=== PATIENT | male | born 1980 | race Caucasian/White ===

== ENCOUNTER 2022-07-17 18:09 | Emergency (ER) | payer MEDICARE, MEDICAID, SELFPAY ==
--- NOTE | ~2022-07-17 | CT_ITS ---
EXAMINATION: CT HEAD WITHOUT CONTRAST CLINICAL INFORMATION: Altered mental status COMPARISON: 09/08/2013 TECHNIQUE: Contiguous axial imaging was performed from the skull base to vertex without intravenous administration of contrast. This CT examination was performed using dose optimization techniques as appropriate, variously including the following: *Automated exposure control *Adjustment of mA and/or kV according to patient size (this includes techniques or standardized protocols for targeted exams where dose is matched to indication/reason for exam; i.e. extremities or head) *Use of iterative reconstruction technique DLP: 685 mGy-cm FINDINGS: Stable encephalomalacia and gliosis within the anterior left frontal lobe and anterior left temporal lobe, appearance and location typical for sequela of previous trauma. No additional areas of abnormal attenuation within the brain parenchyma. No acute intracranial hemorrhage or extra-axial collection. Ventricular system normal in size and configuration. No mass, mass effect or herniation pattern. Calvarium intact. Small mucous retention cysts in the right maxillary sinus. Remaining paranasal sinuses, and mastoid air cells are clear. CT/CT head/brain wo IV con IMPRESSION: * No acute intracranial pathology. * Stable remote posttraumatic encephalomalacia/gliosis within the anterior left frontal and temporal lobes.
[2022-07-17 18:21] VITALS: BP 138/83; PULSE 103; RESP 20; O2SAT 97; BMI 26.8
--- NOTE | 2022-07-17 18:30 | ED.ALCOHOL ---
HPI - Alcohol General Chief Complaint: ETOH/Substance Use Stated Complaint: etoh Source: patient and EMS Mode of arrival: EMS Limitations: other (Intoxicated) History of Present Illness HPI narrative: 42-year-old male presents via EMS for alcohol intoxication. It is reported that he eloped from [place] this morning, and then drank several pt of vodka. Patient has unintelligible speech at this time. MD complaint: alcohol intoxication and alcohol dependence Last drink: Just prior to admission Chronic alcohol use: Yes Previous visits for alcohol intoxication: Yes (First presentation to this facility, has had multiple presentations at [place]) Recent trauma: Yes Associated symptoms: denies other symptoms Treatments prior to arrival: none Related Data Allergies Allergy/AdvReac Type Severity Reaction Status Date / Time prednisone [PREDNISONE] Allergy Unknown MANIC Unverified 07/05/20 16:54 Review of Systems Review of Systems: Yes Unobtainable due to mental status (Intoxicated) [facility] Past Medical History Attestation statement: The following information was validated with the patient. Source: old records reviewed Physical Exam ED Vital Signs: Vital Signs - 24 hr 07/17/22 18:21 07/17/22 20:07 07/17/22 23:46 Temperature 98.3 F 98.0 F Pulse Rate 103 H 105 H 79 Respiratory Rate 20 19 Blood Pressure 138/83 116/70 Pulse Oximetry 97 94 94 Oxygen Delivery Method Room Air Room Air Room Air BMI result Body Mass Index 26.8 Appearance: Alert. Intoxicated. Eyes: Pupils equal, round and reactive to light. ENT: Pharynx normal. Neck: Normal inspection. Neck supple. CVS: Normal heart rate and rhythm. Pulses normal. Respiratory: No respiratory distress. Breath sounds normal. Abdomen: Soft and nontender. Skin: Skin warm and dry. Normal skin color. Normal skin turgor. Extremities: No lower extremity edema. Moves all extremities against resistance. Neuro: No motor deficit. No sensory deficit. Cranial nerves 2-12 intact. Course Course Course Narrative: 42-year-old male presents for alcohol intoxication. Has unintelligible speech at this time, will order labs. Patient presents from an elopement [place] for ETOH intoxication. It is reported by EMS that he drink large amounts of vodka before presenting to this facility. 19:00 ETOH 346. Plan of care is to metabolized freedom. 20:00 patient is difficult to arouse however he does have even unlabored respirations, O2 sat 99% on room air, with a heart rate in the 70s. 23:00 patient continues to sleep, reposition self as needed, arouses with sternal rub, O2 sat 98% on room air, even unlabored respirations, heart rate in the 70s. 00:00 patient continues to sleep and requires sternal rub for arousal. Will order CT scan of the head to rule out subdural. 00:30 CT scan negative for acute findings. Stable remote posttraumatic encephalomalacia gliosis within the anterior frontal lobe and temporal lobes. No acute findings. Plan of care is to metabolize to freedom. MDM - Alcohol Differential Diagnosis Differential diagnosis: Likely alcohol dependence, alcohol withdrawal delirium and alcohol intoxication Medical Records Attestation: I reviewed the patient's medical records. Lab Data Attestation: I reviewed the patient's lab results. Result diagrams: 07/17/22 18:53 07/17/22 18:53 Labs: Lab Results 07/17/22 07/17/22 Range/Units 18:53 18:53 WBC 8.6 (4.8-10.8) X10*3/uL RBC 4.26 L (4.60-5.80) X10*6/uL Hgb 13.1 L (14.0-18.0) g/dl Hct 37.7 L (42.0-52.0) % MCV 88.5 (80.0-98.0) fL MCH 30.8 (27.0-33.0) pg MCHC 34.7 (31.0-36.0) g/dl RDW 12.8 (11.0-16.0) % Plt Count 176 (160-400) X10*3/uL MPV 8.9 L (9.4-12.4) fL Immature Gran % (Auto) 0.2 (0.0-0.4) % Neut % (Auto) 68.6 (45-73) % Lymph % (Auto) 22.1 (20-40) % Ness % (Auto) 6.3 (2-11) % Eos % (Auto) 2.3 (0-4) % Baso % (Auto) 0.5 (0-2) % Lymph # (Auto) 1.9 (1.2-4.9) X10*3/uL Ness # (Auto) 0.5 (0.1-1.2) X10*3/uL Eos # (Auto) 0.2 (0.0-0.4) X10*3/uL Baso # (Auto) 0.0 (0.0-0.2) X10*3/uL Abs Immat Gran (auto) 0.02 (0.00-0.03) X10*3/uL Absolute Neuts (auto) 5.9 (2.0-8.3) x10*3/uL Absolute Nucleated RBC 0.000 (0.0-0.012) X10*3/uL Nucleated RBC % (auto) 0.0 (0.0-0.2) /100WBC Sodium 141 (135-145) mmol/L Potassium 3.5 (3.3-5.1) mmol/L Chloride 107 (96-108) mmol/L Carbon Dioxide 22 (22-29) mmol/L Anion Gap 16 (12-20) BUN 12 (9-16) mg/dL Creatinine 0.88 (0.5-1.4) mg/dL Estim Creat Clear Calc 91.5 Estimated GFR > 60 Random Glucose 117 H (60-115) mg/dL Calcium 8.5 (8.4-10.2) mg/dL Total Bilirubin 0.3 (0.0-1.0) mg/dL AST 58 H (5-37) U/L ALT 42 H (0-40) U/L Alkaline Phosphatase 52 (39-117) U/L Total Protein 6.4 L (6.5-8.0) g/dL Albumin 4.0 (3.5-5.0) g/dL Ethyl Alcohol 346 H* mg/dL Imaging Data CT scan - head: Attestation: I personally reviewed and interpreted this imaging study as follows: Radiologist's impression: FINDINGS: Stable encephalomalacia and gliosis within the anterior left frontal lobe and anterior left temporal lobe, appearance and location typical for sequela of previous trauma. No additional areas of abnormal attenuation within the brain parenchyma. No acute intracranial hemorrhage or extra-axial collection. Ventricular system normal in size and configuration. No mass, mass effect or herniation pattern. Calvarium intact. Small mucous retention cysts in the right maxillary sinus. Remaining paranasal sinuses, and mastoid air cells are clear. ? CT/CT head/brain wo IV con IMPRESSION: *? No acute intracranial pathology. *? Stable remote posttraumatic encephalomalacia/gliosis within the anterior left frontal and temporal lobes. Discharge Plan Discharge Clinical Impression: Alcoholic intoxication Patient Disposition: Still a Patient Instructions: Abuse of Alcohol (ED) Additional Instructions: Consider detox. Thank you for choosing this emergency department for evaluation. Please follow-up with primary care physician as needed. Return to the emergency department for any new, concerning, or worsening symptoms.
[2022-07-17 18:58] LABS: MANUAL DIFF FLAG NO
[2022-07-17 18:59] LABS: Basophils Percent Auto 0.5 % (0-2); Eosinophils Absolute Auto 0.2 X10*3/uL (0.0-0.4); Eosinophils Percent Auto 2.3 % (0-4); Hematocrit 37.7 % (42.0-52.0); Hemoglobin 13.1 g/dl (14.0-18.0); Imm Gran Abs Auto 0.02 X10*3/uL (0.00-0.03); Imm Gran Pct Auto 0.2 % (0.0-0.4); Lymphocytes Absolute Auto 1.9 X10*3/uL (1.2-4.9); Lymphocytes Percent Auto 22.1 % (20-40); Mean Corpuscular HGB Conc 34.7 g/dl (31.0-36.0); Mean Corpuscular Hemoglobin 30.8 pg (27.0-33.0); Mean Corpuscular Volume 88.5 fL (80.0-98.0); Mean Platelet Volume 8.9 fL (9.4-12.4); Monocytes Absolute Auto 0.5 X10*3/uL (0.1-1.2); Monocytes Percent Auto 6.3 % (2-11); Neutrophils Absolute Auto 5.9 x10*3/uL (2.0-8.3); Neutrophils Percent Auto 68.6 % (45-73); Platelet Count 176 X10*3/uL (160-400); Red Blood Count 4.26 X10*6/uL (4.60-5.80); Red Cell Distribution Width 12.8 % (11.0-16.0); White Blood Count 8.6 X10*3/uL (4.8-10.8)
[2022-07-17 19:15] LABS: Alanine Aminotransferase 42 U/L (0-40); Alkaline Phosphatase 52 U/L (39-117); Anion Gap 16 (12-20); Aspartate Amino Transferase 58 U/L (5-37); Bilirubin Total 0.3 mg/dL (0.0-1.0); Blood Urea Nitrogen 12 mg/dL (9-16); Calcium 8.5 mg/dL (8.4-10.2); Carbon Dioxide 22 mmol/L (22-29); Chloride 107 mmol/L (96-108); Creatinine Clr Calc Pharmacy 91.5; Estimated Glomerular Filt Rate > 60; Ethanol 346 mg/dL; Glucose Random 117 mg/dL (60-115); Potassium 3.5 mmol/L (3.3-5.1); Sodium 141 mmol/L (135-145); Total Protein 6.4 g/dL (6.5-8.0)
[2022-07-17 20:07] VITALS: BP 116/70; PULSE 105; TEMP 36.8; O2SAT 94
--- NOTE | 2022-07-17 20:57 | MHC.RECOVSUP ---
? Reason for consult:ETOH o? Current location:ED09? o? Identified substance use concern:? -? Support ? Intervention: N/A ? Plan: o? Follow up tomorrow? ? Additional information:RC wasn't able to speak with pt, he is sedated or too intoxicated? pt is in a deep sleep.
[2022-07-17 23:46] VITALS: PULSE 79; RESP 19; TEMP 36.7; O2SAT 94
[2022-07-18 02:00] VITALS: BP 139/69; PULSE 81; RESP 18; TEMP 36.7
--- NOTE | 2022-07-18 03:29 | PC.NURSE ---
PO from nearby room made RN aware that the pt may have a bottle of alcohol present on his bed. Upon arrival the bedside, a smirnoff vodka bottle was found at the foot of the bed. RN called security and provided them with the bottle, security completed a search of the pt's belongings for additional contraband but none was found.
[2022-07-18 03:41] VITALS: BP 142/73; PULSE 81; RESP 19; TEMP 36.1; O2SAT 96
[2022-07-18 09:50] VITALS: BP 105/62; PULSE 74; RESP 14; O2SAT 95
--- NOTE | 2022-07-18 09:51 | PC.NURSE ---
Pt asleep at this time, VSS.
[2022-07-18 11:14] LABS: Amphetamine Screen Urine Not Detected (Not Detect); Barbiturates, Urine POSITIVE (Not Detect); Benzodiazepines Screen Urine POSITIVE (Not Detect); Cannabinoid Screen Urine POSITIVE (Not Detect); Cocaine Screen Urine Not Detected (Not Detect); Fentanyl, urine Not Detected (Not Detect); Opiate Screen Urine Not Detected (Not Detect); Phencyclidine Screen Urine Not Detected (Not Detect)
[2022-07-18 11:23] LABS: COVID-19 Test Negative (Negative); IDNOW Serial# 9DB6401D
[2022-07-18] MEDS: LORazepam 1 MG TABLET 2 MG PO ×2 (11:40→18:02)
--- NOTE | 2022-07-18 12:47 | MHC.CARE ---
CARE Team attempted to meet with Pt. Pt was to sedate at this time. Plan for care team to follow up with Pt in a couple of hours.
--- OUTSIDE RECORDS SUMMARY | 2022-07-18 15:36 | XMS_ITS | Continuity of Care Document ---
:1980 Author Organization [facility] Address [address] [place] [address]- Care Team Providers Name Role Phone Not on Staff, PCP Primary Care Physician Unavailable Encounter [facility] Date(s): 05/31/21 - 05/31/[address] [address]- Discharge Disposition: A-D/C Shelter, Skilled Nursing, or Longterm Fac Attending Physician: Jody Sosa DO Admitting Physician: Jody Sosa DO Referring Physician: Not on Staff, Referring MD Allergies, Adverse Reactions, Alerts Substance Reaction Severity Status predniSONE Promethazine allergy Active Phenergan Active promethazine Active Protonix Active Immunizations Given and Recorded Vaccine Date Status Refusal Reason tetanus/diphtheria/pertussis, acel(Tdap) 10/18/13 Given Tet/Diphth/Acel, Pertussis (oldterm)1 05/30/08 Given Not Given Vaccine Date Status Refusal Reason pneumococcal 23-valent vaccine 12/29/13 Not Given P atient Refuses pneumococcal 23-valent vaccine 10/19/13 Not Given P atient Refuses 1Admin Note: SANOFI PASTEUR Medications gabapentin 600 mg oral tablet 1 tablet = 600 mg, By Mouth, 4 times a day, # 120 tablet, 0 Refills, Maintenance, 09/27/20 11:13:00 EST, Tablet, Partial fill upon patient request if the prescription is for a schedule II opioid drug. Start Date: 09/27/20 Status: OrderedTEGretol 200 mg oral tablet 200 mg, 1, tablet, By Mouth, Daily at bedtime, # 30 tablet, Refills 0, Tot. Refills 0, Maintenance, 09/27/20 11:13:00 EST, Print Requisition, Partial fill upon patient request if the prescription is for a schedule II opioid drug. Start Date: 09/27/20 Status: Ordered Problem List Condition Effective Dates Status Health Status Informant Alcohol abuse(Confirmed) Active allergy(Confirmed) Active Depression(Confirmed) Active Hepatitis C(Confirmed) 09/2005 Active Injury of shoulder, left(Confirmed) Active PTSD - Post-traumatic stress Active disorder(Confirmed) Seizure(Confirmed) Active Substance abuse(Confirmed) Active Traumatic brain injury(Confirmed) Active Vital Signs Most recent to oldest 1 2 3 [Reference Range]: Height 163 cm 163 cm (05/31/21 6:30 AM) (05/31/21 6:15 AM) Weight 61.6 kg 61.6 kg (05/31/21 6:30 AM) (05/31/21 6:15 AM) Oxygen Saturation [94-100 %] 96 % 97 % 95 % (05/31/21 6:30 AM) (05/31/21 6:15 AM) (05/31/21 5:3 7 AM) Pulse Rate [55-90 bpm] 100 bpm 98 bpm 101 bpm *H* *H* *H* (05/31/21 6:30 AM) (05/31/21 6:15 AM) (05/31/21 5:3 7 AM) Body Mass Index [18.5-24.99] 23.18 (05/31/21 6:30 AM) Blood Pressure [90-138/55-84 mm 106/62 mm Hg 105/74 mm Hg 111/69 mm Hg Hg] (05/31/21 6:30 AM) (05/31/21 6:15 AM) (05/31/21 5:3 7 AM) Respiratory Rate [16-30 br/min] 13 br/min 14 br/min 20 br/min *L* *L* (05/31/21 5:37 AM ) (05/31/21 6:30 AM) (05/31/21 6:15 AM) Temperature [96.8-100.4 DegF] 97.2 DegF (05/31/21 5:37 AM) Mode of Delivery (Oxygen) room air Room air Room a ir (05/31/21 6:30 AM) (05/31/21 6:15 AM) (05/31/21 5:3 7 AM) Blood pressure sites Arm, right (05/31/21 5:37 AM) Temperature Route Axillary (05/31/21 5:37 AM) Dry Weight 61.6 kg 61.6 kg (05/31/21 6:30 AM) (05/31/21 6:15 AM) Social History Social History Type Response Smoking Status Current every day smoker; Ty pe: Cigarettes1 entered on: 10/25/13 Sex 11/2 pack per day
--- OUTSIDE RECORDS SUMMARY | 2022-07-18 15:36 | XMS_ITS | Continuity of Care Document ---
:1980 Author Organization [facility] Address [address] [place] [address] Support Name Relationship Address Phone OKarla Duarte Primary Care Provider [address] [facility] [place] [address] Halley Bhatt Other Provider [address] [place] [address] Cynthia Rodriguez Emergency Provider [facility] Unavailable [address] [place] [address] Allergies, Adverse Reactions, Alerts No known allergies. Medications Active Medications Medication Dose Units Route Sig Start Date Status Gabapentin 300 MG Oral Three Times A Day April 28 21 Active Omeprazole 20 MG Oral Every Morning April 28, 2021 A ctive Escitalopram Oxalate 10 MG Oral Daily April 28, 2021 Active Problem List Active Problems Medical Problem Onset Date Status Alcoholic intoxication Active Depression Active Procedures Procedure Date Status US nonvascular UP EXT LT cleary December 12, 2020 completed US abdomen soft tissue limited December 12, 2020 completed Relevant Diagnostic Tests and/or Laboratory Data Laboratory Results Test Date/Time Result Interp. Ref. Range Result Comment White Blood Count April 27, 2021 6.2 10^3/uL 3.9-10.8 11:03pm Red Blood Count April 27, 2021 4.53 10^6/uL 4.42-5.73 11:03pm Hemoglobin April 27, 2021 14.1 g/dL 14.0-17.3 11:03pm Hematocrit April 27, 2021 41.3 % 40.1-51.0 11:03pm Mean Corpuscular April 27, 2021 91.2 fL 83.0-96.0 Volume 11:03pm Mean Corpuscular April 27, 2021 31.1 pg 25.7-32.2 Hemoglobin 11:03pm Mean Corpuscular April 27, 2021 34.1 % 32.3-36.5 Hemoglobin Concent 11:03pm Platelet Count April 27, 2021 196 10^3/uL 154-369 11:03pm RDW Coefficient of April 27, 2021 12.5 % 11.5-14.0 Variation 11:03pm Neutrophils (%) April 27, 2021 59.0 % 43.0-74.0 (Auto) 11:03pm Lymphocytes (%) April 27, 2021 31.2 % 17.0-44.0 (Auto) 11:03pm Monocytes (%) (Auto) April 27, 2021 4.2 % 4.0-13.0 11:03pm Eosinophils (%) April 27, 2021 4.7 % 1-10 (Auto) 11:03pm Basophils (%) (Auto) April 27, 2021 0.6 % 0-3.0 11:03pm Immature/Total April 27, 2021 0.3 0.001-4.0 Granulocytes (auto) 11:03pm Nucleated Red Blood April 27, 2021 0 % Cells % (auto) 11:03pm Absolute Neutrophils April 27, 2021 3.67 10^3/UL 1.68-7.99 (auto) 11:03pm Absolute Lymphocytes April 27, 2021 1.94 10^3/UL 0.66-4.75 (auto) 11:03pm Absolute Monocytes April 27, 2021 0.26 10^3/UL 0.16-1.40 (auto) 11:03pm Absolute Eosinophils April 27, 2021 0.29 10^3/UL 0.0-0.6 (auto) 11:03pm Absolute Basophils April 27, 2021 0.04 10^3/UL 0.00-0.32 (auto) 11:03pm Nucleated RBC April 27, 2021 0 K/uL Absolute Count (auto) 11:03pm Urine Amphetamine April 28, 2021 Not detected Po sitive cut-off Screen 5:09am concentration 1000 ng/mL Urine Barbiturates April 28, 2021 Not detected P ositive cut-off Screen 5:09am concentration 200 ng/mL Urine Benzodiazepines April 28, 2021 Not detected Positive cut-off Screen 5:09am concentration 200 ng/mL Urine Buprenorphine April 28, 2021 Not detected Positive cut-off Screen 5:09am concentration 10 ng/mL Urine Cocaine Screen April 28, 2021 Not detected Positive cut-off 5:09am concentration 300 ng/mL Urine MDMA Screen April 28, 2021 Not detected Po sitive cut-off (Ecstasy) 5:09am concentration 500 ng/mL Urine Methadone April 28, 2021 Not detected Posi tive cut-off Screen 5:09am concentration 300 ng/mL Urine Oxycodone April 28, 2021 Not detected Posi tive cut-off Screen 5:09am concentration 300 ng/mL Urine Opiates Screen April 28, 2021 Not detected Positive cut-off 5:09am concentration 300 ng/mL Urine Phencyclidine April 28, 2021 Not detected Positive cut-off Screen 5:09am concentration 25 ng/mL Urine Propoxyphene April 28, 2021 Not detected P ositive cut-off Screen 5:09am concentration 300 ng/mL Urine Cannabinoids April 28, 2021 Not detected P ositive cut-off Screen 5:09am concentration 50 ng/mL Urine Tricyclic April 28, 2021 Not detected POS ITIVE CUT-OFF CONCENTRATION = 300 ng/mL Antidepressants 5:09am Listed b elow are the typical positive cutoffs Nortriptyline 300 Desimipramine 250 Amitriptyline 400 Doxepin 550 Amoxapine 100 ,000 4-Qfepyxp-Zhdfwnexzn 1,700 Chlorpromazin e 1,300 Protriptyline 450 Clomipramine 350 Trimipramine 1,000 Cyclobenzapri ne 400 Imipramine 350 Urine Drug Screen April 28, 2021 See comment Int erpretive Guidelines: Immunoassay Urine Drug Screening Comment 5:09am Screening assa ys provide preliminary results for medical purposes only. Many variables affect duration of detectability; Pharmacokinetics, presence of metabolite(s), patient variability (i.e body mass, state of hydration, diet) short term vs. usp use of drug, urine pH, route of ingestion and the last time of ingestion/administration. A Positive r esult indicates only the presence of the drug or it's metabolite(s), and does not necessarily correlate with the extent of physiological and psychological effects. A Not Detecte d result indicates that the drug/metabolite is either not present or is present at levels below the cutoff of the test. Screening test s can have false positives or negatives. If requested, a confirmatory method such as GC/MS for a specific analyte can be sent to the reference laboratory if needed. Such test results are available in 3-5 days. Fentanyl testi ng is not available on site due to the current federal regulations. If needed, it can be sent to the reference laboratory. If confirmator y testing is required, please contact the laboratory at [phone] to request further testing within 30 days for outpatients and 5 days for inhouse patients. An add on requisition naming the sp ecific drug co nfirmation is required; Please fax to [phone]. Sodium Level April 27, 2021 144 mmol/L 136-144 11:02pm Potassium Level April 27, 2021 3.6 mmol/L 3.4-5.1 11:02pm Chloride Level April 27, 2021 111 mmol/L 101-111 11:02pm Carbon Dioxide Level April 27, 2021 22 mmol/L 22-32 11:02pm Anion Gap April 27, 2021 11 mmol/L 5.0-15.0 11:02pm Blood Urea Nitrogen April 27, 2021 17 mg/dL 8-20 11:02pm Creatinine April 27, 2021 0.92 mg/dL 0.64-1.27 11:02pm Glomerular Filtration April 27, 2021 > 60.0 60.0- Please note that the Pharmacy may use a different equation when calculating drug dosing schedules (such as the Cockcroft - Gault Equation). Rate Calc 11:02pm Multiply x 1.2 12 if patient is of descent. Units are mL/m in/1.73 m sq. Calculated usi ng the IDMS-traceable MDRD study equation. Glucose Level April 27, 2021 108 mg/dL 75-140 11:02pm Calcium Level April 27, 2021 8.6 mg/dL 8.6-10.5 11:02pm Phosphorus Level April 27, 2021 4.3 mg/dL 2.4-4.7 11:02pm Total Bilirubin April 27, 2021 < 0.30 mg/dL Low 0.3-1.2 11:02pm Aspartate Amino April 27, 2021 29 U/L 15-41 Transf (AST/SGOT) 11:02pm Alanine April 27, 2021 26 U/L 17-63 Aminotransferase 11:02pm (ALT/SGPT) Alkaline Phosphatase April 27, 2021 37 U/L Low 38-126 11:02pm Total Protein April 27, 2021 6.1 g/dL 6.1-7.9 11:02pm Albumin April 27, 2021 3.7 g/dL 3.5-4.8 11:02pm Magnesium Level April 27, 2021 2.1 mg/dL 1.8-2.5 11:02pm Salicylates Level April 27, 2021 < 4.0 mg/dL Low 4.0-20 Tox ic Range: Greater than 30 mg/dl 11:02pm Patients treat ed with Sulfasalazine may generate a FALSE HIGH result for Salicylate. Patients treat ed with Sulfapyridine may generate a FALSE LOW result for Salicylate Acetaminophen Level April 27, 2021 < 10.0 ug/mL Low 10-30 Acetaminophen toxic range: 11:02pm Greater than 1 50 ug/mL at 4 hours after ingestion. Greater than 7 5 ug/mL at 8 hours after ingestion. Greater than 4 0 ug/mL at 12 hours after ingestion. Ethyl Alcohol Level April 27, 2021 233 mg/dL Th e Laboratory will now report Ethanol units in mg/dL. 11:02pm To convert res ults to %, please divide the result by 1000. This is to better comply with the laboratory regulatory agencies. SARS-CoV-2 (PCR) April 28, 2021 Negative Test performed with 7:27am a SARS-CoV-2 P CR assay which taveras s received emerg ency use authorizat ion (EUA) by the U.S.Food and D rug Administration (FDA). Negativ e results do not preclude infec tion with SARS-CoV- 2 and should not be used as the sole ba sis for treatment or other manageme nt decisions. Advance Directives Advance Directive Response Recorded Date/Time Date Patient Queried 04/28/21 April 28, 2021 12:10 am Does pt. have a legal guardian? No April 28, 2021 12:10am Does the patient have a Healthcare Proxy? No December 12, 2020 12:28pm Healthcare Proxy Status Unable to Give April 28, 2021 12 :10am Is the Healthcare Proxy on file at [facility] Yes F kp 2020 12:28pm Community? Chief Complaint and Reason for Visit Encounter Admit Date Chief Complaint Reason for Visit Departed Emergency April 27, 2021 10:38pm eval Hospital Discharge Instructions No known hospital discharge instructions. Hospital Discharge Medications Medication Dose Units Route Sig Qty Days Order Date Status In structions Gabapentin 300 MG Oral Three Times April 28, Active A Day 2020 Omeprazole 20 MG Oral Every April 28, Active Morning 2020 Escitalopram 10 MG Oral Daily April 28, Active Oxalate 2020 Encounters Encounter Facility Location Admit/Visit Discharge/Departure Atte nding Date Date Provider Departed [facility] ED April 27, 2021 April 29, 2021 12:22pm [facility] December 12December 12, 2020 [place], Clinical [facility] Ul[facility]ound 2020 12:26pm 12:27pm Karla carl Functional Status Query Response Date Recorded Comment Patient Orientation Oriented x3 April 27, 2021 11:16pm Awake Alert Immunizations No known immunizations. Plan of Care No Known Plan of Care Information Social History Query Response Date Recorded Comment Does the patient use drugs? No April 27, 2021 11:16p m Is pt a current\former smoker or user of Yes, current April 9:33am tobacco products? Query Response Start Date Stop Date Is pt a current\former smoker or user of tobacco Yes, current products? Vital Signs Vital Reading Result Reference Range Collection Date/ Time Height 5 ft 7 in April 28, 2021 11 :40am Weight 61 kg April 28, 2021 11 :39am Temperature 97.7 F 97.5 F-99.3 F April 29, 2021 11 :35am Pulse 62 BPM 60-90 April 29, 2021 11 :35am Respiration 18 RPM 12-20 April 29, 2021 11 :35am Pulse Oximetry 97 % 95-100 April 29, 2021 11 :35am Blood Pressure Systolic 120 100-160 April 29, 2021 11:35am Blood Pressure Diastolic 71 60-90 April 11:35am
--- OUTSIDE RECORDS SUMMARY | 2022-07-18 15:36 | XMS_ITS | Continuity of Care Document ---
:1980 Author Organization [facility] nter Address [address] [place] [address]- Care Team Providers Name Role Phone Not on Staff, PCP Primary Care Physician Unavailable Encounter [facility] [place] [place] Date(s): 03/02/20 - 03/03/[address] [address] [phone] Discharge Disposition: Transferred to short-term general hospit Attending Physician: Thai Ambrosio MD Admitting Physician: Thai Ambrosio MD Referring Physician: Not on Staff, Referring MD Allergies, Adverse Reactions, Alerts Substance Reaction Severity Status predniSONE Promethazine allergy Active promethazine Active Phenergan Active Protonix Active Immunizations Given and Recorded Vaccine Date Status Refusal Reason tetanus/diphtheria/pertussis, acel(Tdap) 10/18/13 Given Tet/Diphth/Acel, Pertussis (oldterm)1 05/30/08 Given Not Given Vaccine Date Status Refusal Reason pneumococcal 23-valent vaccine 12/29/13 Not Given P atient Refuses pneumococcal 23-valent vaccine 10/19/13 Not Given P atient Refuses 1Admin Note: SANOFI PASTEUR Problem List Condition Effective Dates Status Health Status Informant Alcohol abuse(Confirmed) Active allergy(Confirmed) Active Depression(Confirmed) Active Hepatitis C(Confirmed) 09/2005 Active Injury of shoulder, left(Confirmed) Active PTSD - Post-traumatic stress Active disorder(Confirmed) Seizure(Confirmed) Active Substance abuse(Confirmed) Active Traumatic brain injury(Confirmed) Active Vital Signs Most recent to oldest 1 2 3 [Reference Range]: Height 162 cm 162 cm 162 cm (03/03/20 11:45 AM) (03/03/20 6:31 AM) (03/02/20 11 :26 PM) Weight 59 kg 59 kg 59 kg (03/03/20 11:45 AM) (03/03/20 6:31 AM) (03/02/20 11 :26 PM) Oxygen Saturation [94-100 %] 98 % 98 % 96 % (03/03/20 11:45 AM) (03/03/20 6:31 AM) (03/02/20 9: 08 PM) Pulse Rate [55-90 bpm] 75 bpm 75 bpm 81 bpm (03/03/20 11:45 AM) (03/03/20 7:39 AM) (03/03/20 6: 38 AM) Body Mass Index [18.5-24.99] 22.48 22.48 22. 48 (03/03/20 11:45 AM) (03/03/20 6:31 AM) (03/02/20 11 :26 PM) Blood Pressure [90-138/55-84 125/91 mm Hg 125/91 mm Hg 131 /87 mm Hg mm Hg] (03/03/20 11:45 AM) (03/03/20 11:45 AM) (03/03/20 6 :38 AM) Respiratory Rate [16-30 18 br/min 18 br/min 18 br/mi n br/min] (03/03/20 11:45 AM) (03/03/20 7:39 AM) (03/03/20 6: 38 AM) Temperature [96.8-100.4 97.9 DegF 97.9 DegF 98.0 Deg F DegF] (03/03/20 11:45 AM) (03/03/20 7:39 AM) (03/03/20 6: 38 AM) Mode of Delivery (Oxygen) Room air room air Room a ir (03/03/20 11:45 AM) (03/03/20 6:31 AM) (03/02/20 9: 08 PM) Blood pressure sites Arm, left Arm, left Arm, left (03/03/20 11:45 AM) (03/02/20 9:08 PM) (03/02/20 8: 20 PM) Temperature Route Oral Oral Oral (03/03/20 11:45 AM) (03/03/20 7:39 AM) (03/03/20 6: 38 AM) Dry Weight 59 kg 59 kg 59 kg (03/03/20 11:45 AM) (03/03/20 6:31 AM) (03/02/20 11 :26 PM) Social History Social History Type Response Smoking Status Current every day smoker; Ty pe: Cigarettes1 entered on: 10/25/13 Sex 08/20 pack per day
--- OUTSIDE RECORDS SUMMARY | 2022-07-18 15:36 | XMS_ITS | Continuity of Care Document ---
:1980 Author Organization [facility] Address [address] [place] [address]- Care Team Providers Name Role Phone Not on Staff, PCP Primary Care Physician Unavailable Encounter [facility] [place] Date(s): 03/15/20 - 03/22/20 [facility]patient Psychiatry [address] [place] [address]- [facility] Discharge Disposition: A-D/C Home Attending Physician: Adilene Amor MD Admitting Physician: Adilene Amor MD Referring Physician: Not on Staff, Referring [...] atient Refuses 1Admin Note: SANOFI PASTEUR Medications amphetamine-dextroamphetamine 10 mg oral tablet 1 tablet = 10 mg, By Mouth, 2 times a day, 0 Refills, Maintenance, 03/15/20 21:20:00 EDT, Tablet Start Date: 03/15/20 Status: Orderedfluticasone 50 mcg/inh nasal spray 1 sprays, Nares, Both, 2 times a day, 0 Refills, Maintenance, 03/15/20 21:20:00 EDT, [place] Start Date: 03/15/20 Status: Orderedgabapentin 600 mg oral tablet 1 tablet = 600 mg, By Mouth, 4 times a day, # 56 tablet, 3 Refills, Maintenance, 03/07/20 10:46:00 EDT, Tablet Start Date: 03/07/20 Stop Date: 05/02/20 Status: Orderednaltrexone 50 mg oral tablet 1 tablet = 50 mg, By Mouth, Daily, # 30 tablet, 0 Refills, Acute 04/18/20 9:37:00 EDT, 03/22/20 9:35:00 EDT, Tablet, [id number], 160, cm, 03/22/20 8:32:00 EDT, Height, 62, kg, 03/15/20 21:43:00EDT, Dry Weight Start Date: 03/22/20 Stop Date: 04/18/20 Status: Ordered Problem List Condition Effective Dates Status Health Status Informant Alcohol abuse(Confirmed) Active allergy(Confirmed) Active Depression(Confirmed) Active Hepatitis C(Confirmed) 09/2005 Active Injury of shoulder, left(Confirmed) Active PTSD - Post-traumatic stress Active disorder(Confirmed) Seizure(Confirmed) Active Substance abuse(Confirmed) Active Traumatic brain injury(Confirmed) Active Vital Signs Most recent to oldest 1 2 3 [Reference Range]: Height 160 cm 160 cm 160 cm (03/22/20 8:32 AM) (03/21/20 8:41 PM) (03/21/20 8:08 A M) Weight 62 kg 59.5 kg 59.5 kg (03/15/20 9:43 PM) (03/15/20 8:03 AM) (03/15/20 6:1 9 AM) Oxygen Saturation [94-100 100 % 100 % 99 % %] (03/22/20 8:32 AM) (03/21/20 8:08 AM) (03/20/20 9:13 P M) Pulse Rate [55-90 bpm] 95 bpm 86 bpm 94 bpm *H* (03/21/20 8:41 PM) *H* (03/22/20 8:32 AM) (03/21/20 8:08 AM ) Body Mass Index 24.22 23.24 23.24 [18.5-24.99] (03/15/20 9:43 PM) (03/15/20 8:03 AM) (03/15/20 6:1 9 AM) Blood Pressure 132/71 mm Hg 144/86 mm Hg 119/83 mm Hg [90-138/55-84 mm Hg] (03/22/20 8:32 AM) *H* (03/21/20 8: 08 AM) (03/21/20 8:41 PM) Respiratory Rate [16-30 18 br/min 16 br/min 16 br/mi n br/min] (03/22/20 8:32 AM) (03/21/20 10:23 PM) (03/21/20 9:31 PM) Temperature [96.8-100.4 97.4 DegF 98.3 DegF 96.9 Deg F DegF] (03/22/20 8:32 AM) (03/21/20 8:41 PM) (03/21/20 8:08 A M) Mode of Delivery (Oxygen) Room air Room air Room a ir (03/22/20 8:32 AM) (03/20/20 9:13 PM) (03/18/20 1:31 PM) Blood pressure sites Arm, right Arm, left Arm, right (03/22/20 8:32 AM) (03/21/20 8:41 PM) (03/21/20 8:08 A M) Temperature Route Oral Oral Oral (03/22/20 8:32 AM) (03/21/20 8:41 PM) (03/21/20 8:08 A M) Dry Weight 62 kg 59.5 kg 59.5 kg (03/15/20 9:43 PM) (03/15/20 8:03 AM) (03/15/20 6:1 9 AM) Weight Obtained Via Standing scale (03/15/20 9:43 PM) Sensory deficits Uncorrected visual impairment (03/15/20 9:43 PM) Mobility assistance Independent (03/15/20 9:43 PM) Social History Social History Type Response Smoking Status Current every day smoker; Ty pe: Cigarettes1 entered on: 10/25/13 Sex 11/2 pack per day
--- OUTSIDE RECORDS SUMMARY | 2022-07-18 15:36 | XMS_ITS | Continuity of Care Document ---
:1980 Author Organization [facility] nter Address [address] [place] [address]- Care Team Providers Name Role Phone Not on Staff, PCP Primary Care Physician Unavailable Encounter [facility] [place] Date(s): 03/08/20 - 03/08/[address] [address] [phone] Discharge Disposition: A-D/C AMA Attending Physician: Thai Ambrosio MD Admitting Physician: [...] Start Date: 03/07/20 Stop Date: 05/02/20 Status: Ordered Problem List Condition Effective Dates Status Health Status Informant Alcohol abuse(Confirmed) Active allergy(Confirmed) Active Depression(Confirmed) Active Hepatitis C(Confirmed) 09/2005 Active Injury of shoulder, left(Confirmed) Active PTSD - Post-traumatic stress Active disorder(Confirmed) Seizure(Confirmed) Active Substance abuse(Confirmed) Active Traumatic brain injury(Confirmed) Active Vital Signs Most recent to oldest 1 2 3 [Reference Range]: Height 162 cm 162 cm 162 cm (03/08/20 9:37 AM) (03/08/20 4:59 AM) (03/08/20 12: 26 AM) Weight 59 kg 59 kg 59 kg (03/08/20 9:37 AM) (03/08/20 4:59 AM) (03/08/20 12: 26 AM) Oxygen Saturation [94-100 %] 96 % 100 % 98 % (03/08/20 9:37 AM) (03/08/20 4:59 AM) (03/08/20 1:3 0 AM) Pulse Rate [55-90 bpm] 98 bpm 90 bpm 61 bpm *H* (03/08/20 4:59 AM) (03/08/20 1:30 AM) (03/08/20 9:37 AM) Body Mass Index [18.5-24.99] 22.48 22.48 (03/08/20 9:37 AM) (03/08/20 4:59 AM) Blood Pressure [90-138/55-84 117/80 mm Hg 105/53 mm Hg 108 /64 mm Hg mm Hg] (03/08/20 9:37 AM) (03/08/20 4:59 AM) (03/08/20 1:3 0 AM) Respiratory Rate [16-30 20 br/min 20 br/min 20 br/mi n br/min] (03/08/20 9:37 AM) (03/08/20 9:08 AM) (03/08/20 4:5 9 AM) Temperature [96.8-100.4 DegF] 97.2 DegF 97.8 DegF 96 .4 DegF (03/08/20 9:37 AM) (03/08/20 1:30 AM) *L* (03/08/20 12:26 A M) Mode of Delivery (Oxygen) Room air Room air Room a ir (03/08/20 9:37 AM) (03/08/20 4:59 AM) (03/08/20 1:3 0 AM) Blood pressure sites Arm, right (03/08/20 9:37 AM) Temperature Route Oral Oral Oral (03/08/20 9:37 AM) (03/08/20 1:30 AM) (03/08/20 12: 26 AM) Dry Weight 59 kg 59 kg 59 kg (03/08/20 9:37 AM) (03/08/20 4:59 AM) (03/08/20 12: 26 AM) Social History Social History Type Response Smoking Status Current every day smoker; Ty pe: Cigarettes1 entered on: 10/25/13 Sex 11/2 pack per day
--- OUTSIDE RECORDS SUMMARY | 2022-07-18 15:36 | XMS_ITS ---
:1980 Author Organization [facility] Address [address] [place] [address] Care Team Providers Name Role Phone ADALGISA MACDONALD Unavailable Unavailable PROBLEMS Unknown Problems ALLERGIES No Information ENCOUNTERS Encounter Location Date Diagnosis [facility] [address], [place] [id number] IMMUNIZATIONS No Known Immunizations SOCIAL HISTORY Never Assessed REASON FOR REFERRAL FUNCTIONAL STATUS PLAN OF CARE VITAL SIGNS MEDICATIONS Unknown Medications PROCEDURES No Known procedures RESULTS No Results REASON FOR VISIT being discharged from hosp 08/10 Insurance Providers [facility] Health Member Patient Patient Patient Patient Patient Subscriber Subscriber Subscriber Group Insurance Plan Plan Plan Plan ID Relationship Address Phone Name Date of ID Name Date of No Type Insurance Insurance Insurance Coverage to Subscriber Address Phone Name Dates [facility] [phone] [facility] self Jorge [id number] [id number] [employer] [facility] [employer] [facility] [address] Medicare [phone] Medicare self Jorge [id number] [place] [address]
--- OUTSIDE RECORDS SUMMARY | 2022-07-18 15:36 | XMS_ITS ---
:1980 Author Name David Diaz Care Team Providers Name Role Phone David Diaz Unavailable Unavailable PROBLEMS Type Condition ICD9-CM Code PFH43-FV Code Onset Condition SNO MED Code Dates Status Problem HEAD INJURY NOS 959.01 Active 8227 1004 Problem Hepatitis C 070.70 Active 85586369 without hepatic coma, not otherwise specified Problem Opioid abuse, 305.50 Active 052290 1 unspecified Problem Back pain 724.5 Active 439061035 Problem Major depression 296.00 Active 370 364735 NOS Problem Attention deficit 314.00 Active 35 167100 disorder, without mention of hyperactivity Problem Cocaine abuse, 305.60 Active 22405 003 unspecified Problem Episodic drinking 305.02 Active 19 7661192 to excess ALLERGIES Substance Reaction Event Type Date Status promethazine Unknown Drug Allergy Sep, Active prednisone Unknown Drug Allergy Sep, Active ENCOUNTERS Encounter Location Date Diagnosis [facility] [address] [place] [address], Sep, [place] [id number] [facility] [address] [place] [address], Sep, [facility] [id number] IMMUNIZATIONS No Known Immunizations SOCIAL HISTORY Never Assessed REASON FOR REFERRAL Referral Organization [facility] Referring Provider First Name Nursing Referring Provider Last Name [facility] Referring Provider Specialty Family Practice Referring Provider Referral Organization [facility] Referring Provider First Name Nursing Referring Provider Last Name [facility] Referring Provider Specialty Family Practice Referring Provider FUNCTIONAL STATUS PLAN OF CARE Activity Details Referral ID [facility] Referral Verification [facility] REVS VITAL SIGNS MEDICATIONS Unknown Medications PROCEDURES No Known procedures RESULTS No Results REASON FOR VISIT Insurance Providers [facility] Health Member Patient Patient Patient Patient Patient Subscriber Subscriber Subscriber Group Insurance Plan Plan Plan Plan ID Relationship Address Phone Name Date of ID Name Date of No Type Insurance Insurance Insurance Coverage to Subscriber Address Phone Name Dates [place] [phone] [place] self Jorge [id number] Medicaid [id number] [place] [id number] MEDICAL (GENERAL) HISTORY Type Description Date Hospitalization History head injury 02/2006
--- OUTSIDE RECORDS SUMMARY | 2022-07-18 15:36 | XMS_ITS | Continuity of Care Document ---
:1980 Author Organization [facility] nt Inpatient Psychiatry Address [address] [place] [address]- Care Team Providers Name Role Phone Not on Staff, PCP Primary Care Physician Unavailable Encounter [facility] [place] Date(s): 04/05/20 - 04/09/20 [facility] Inpatient Psychiatry [address] [place] [address]- [facility] Discharge Disposition: A-D/C Home Attending Physician: Amber Sky MD Admitting Physician: Amber Sky MD Referring Physician: Not on Staff, Referring [...] atient Refuses 1Admin Note: SANOFI PASTEUR Medications traZODone 50 mg oral tablet 50 mg, 1, tablet, By Mouth, Daily at bedtime, # 30 tablet, Refills 0, Tot. Refills 0, Maintenance, 04/09/20 10:13:00 EDT, Print Requisition Start Date: 04/09/20 Status: Ordered Problem List Condition Effective Dates Status Health Status Informant Alcohol abuse(Confirmed) Active allergy(Confirmed) Active Depression(Confirmed) Active Hepatitis C(Confirmed) 09/2005 Active Injury of shoulder, left(Confirmed) Active PTSD - Post-traumatic stress Active disorder(Confirmed) Seizure(Confirmed) Active Substance abuse(Confirmed) Active Traumatic brain injury(Confirmed) Active Vital Signs Most recent to oldest 1 2 3 [Reference Range]: Height 163 cm 163 cm 163 cm (04/09/20 8:03 AM) (04/08/20 8:21 PM) (04/08/20 7:5 3 AM) Weight 59 kg 59 kg 59 kg (04/05/20 11:46 AM) (04/04/20 6:41 PM) (04/04/20 5: 11 PM) Oxygen Saturation [94-100 %] 98 % 98 % 99 % (04/09/20 8:03 AM) (04/08/20 8:21 PM) (04/08/20 7:5 3 AM) Pulse Rate [55-90 bpm] 90 bpm 89 bpm 82 bpm (04/09/20 8:03 AM) (04/08/20 8:21 PM) (04/08/20 7:5 3 AM) Body Mass Index [18.5-24.99] 22.21 22.21 22. 21 (04/05/20 11:46 AM) (04/04/20 6:41 PM) (04/04/20 5: 11 PM) Blood Pressure [90-138/55-84 120/82 mm Hg 135/78 mm Hg 128 /87 mm Hg mm Hg] (04/09/20 8:03 AM) (04/08/20 8:21 PM) (04/08/20 7:5 3 AM) Respiratory Rate [16-30 18 br/min 18 br/min 18 br/mi n br/min] (04/09/20 9:55 AM) (04/09/20 8:11 AM) (04/09/20 8:0 9 AM) Temperature [96.8-100.4 DegF] 98.2 DegF 97.5 DegF 97 .7 DegF (04/09/20 8:03 AM) (04/08/20 8:21 PM) (04/08/20 7:5 3 AM) Mode of Delivery (Oxygen) Room air Room air Room a ir (04/08/20 8:21 PM) (04/07/20 8:13 PM) (04/05/20 11: 46 AM) Blood pressure sites Arm, left Arm, left Arm, left (04/09/20 8:03 AM) (04/08/20 8:21 PM) (04/08/20 7:5 3 AM) Temperature Route Oral Temporal Oral (04/09/20 8:03 AM) (04/08/20 8:21 PM) (04/08/20 7:5 3 AM) Dry Weight 59 kg 59 kg 59 kg (04/05/20 11:46 AM) (04/04/20 6:41 PM) (04/04/20 5: 11 PM) Sensory deficits None (04/05/20 11:46 AM) Mobility assistance Independent (04/05/20 11:46 AM) Social History Social History Type Response Smoking Status Current every day smoker; Ty pe: Cigarettes1 entered on: 10/25/13 Sex 11/2 pack per day
--- OUTSIDE RECORDS SUMMARY | 2022-07-18 15:36 | XMS_ITS | Continuity of Care Document ---
:1980 Author Organization [facility] Address [address] [place] [address]- Care Team Providers Name Role Phone Not on Staff, PCP Primary Care Physician Unavailable [id number] Date(s): 07/10/22 - 07/11/[address] [address]- Discharge Disposition: A-D/C Home Attending Physician: Sohan ENRIQUEZ, Florina Saldana Admitting Physician: Florina Parry MD Referring Physician: Not on Staff, Referring MD Allergies, Adverse Reactions, Alerts Substance Reaction Severity Status predniSONE Promethazine allergy Active Phenergan Active Protonix Active promethazine Active Immunizations Given and Recorded Vaccine Date Status Refusal Reason tetanus/diphtheria/pertussis, acel(Tdap) 10/18/13 Given Tet/Diphth/Acel, Pertussis (oldterm)1 05/30/08 Given Not Given Vaccine Date Status Refusal Reason pneumococcal 23-valent vaccine 12/29/13 Not Given P atient Refuses pneumococcal 23-valent vaccine 10/19/13 Not Given P atient Refuses 1Admin Note: SANOFI PASTEUR Medications chlordiazePOXIDE 25 mg oral capsule See Instructions, PRN for symptoms of alcohol withdrawal, Day 1: 50 mg every 8 hours; Day 2: 25 mg every 6 hours; Day 3: 25 mg twice a day; Day 4: 25 mg once at bedtime, # 13 capsule, 0 Refills, Acute 07/14/22 9:00:00 EDT, 07/11/22 6:48:00 EDT,... Start Date: 07/11/22 Stop Date: 07/14/22 Status: Orderedgabapentin 600 mg oral tablet 1 [...] Height 163 cm 163 cm 163 cm (07/11/22 7:03 AM) (07/11/22 7:00 AM) (07/11/22 12: 49 AM) Weight 60 kg 60 kg 60 kg (07/11/22 7:03 AM) (07/11/22 7:00 AM) (07/11/22 12: 49 AM) Oxygen Saturation [94-100 96 % 98 % 98 % %] (07/11/22 7:00 AM) (07/11/22 12:49 AM) (07/10/22 9: 10 PM) Pulse Rate [55-90 bpm] 69 bpm 77 bpm 99 bpm (07/11/22 6:57 AM) (07/11/22 5:47 AM) *H* (07/11/22 12:49 A M) Body Mass Index 22.58 kg/m2 22.58 kg/m2 22.58 kg/m2 [18.5-24.99 kg/m2] (07/11/22 7:00 AM) (07/11/22 12:49 AM) (07/10/22 9:11 PM) Blood Pressure 96/59 mm Hg 111/84 mm Hg 127/73 mm Hg [90-138/55-84 mm Hg] (07/11/22 6:57 AM) (07/11/22 5:47 AM) ( 2 12:49 AM) Respiratory Rate [16-30 19 br/min 16 br/min 18 br/mi n br/min] (07/11/22 7:02 AM) (07/11/22 6:57 AM) (07/11/22 5:4 7 AM) Temperature [96.8-100.4 97 DegF 98.2 DegF DegF] (07/11/22 6:57 AM) (07/10/22 9:11 PM) Liters per Minute 0 L/min (07/10/22 9:10 PM) Mode of Delivery (Oxygen) Room air Room air (07/11/22 12:49 AM) (07/10/22 3:43 PM) Blood pressure sites Arm, left Arm, right Arm, right (07/11/22 12:49 AM) (07/10/22 9:10 PM) (07/10/22 3: 43 PM) Temperature Route Temporal Oral (07/11/22 6:57 AM) (07/10/22 9:11 PM) Dry Weight 60 kg 60 kg 60 kg (07/11/22 7:03 AM) (07/11/22 7:00 AM) (07/11/22 12: 49 AM) Weight Obtained Via Patient/family stated (07/10/22 3:47 PM) Dry Weight Obtained Via Standing scale (07/10/22 3:47 PM) Social History Social History Type Response Smoking Status Current every day smoker; Ty pe: Cigarettes1 entered on: 10/25/13 Sex 11/2 pack per day Care Team PersonnelName: Not on Staff, PCP
--- OUTSIDE RECORDS SUMMARY | 2022-07-18 15:36 | XMS_ITS | Continuity of Care Document ---
:1980 Author Organization [facility] nter Address [address] [place] [address]- Care Team Providers Name Role Phone Not on Staff, PCP Primary Care Physician Unavailable Encounter [facility] [place] Date(s): 03/08/20 - 03/09/[address] [address] [phone] Discharge Disposition: A-D/C Home Attending Physician: Flo Gaytan MD Admitting Physician: Flo Gaytan MD Referring Physician: Not on Staff, Referring [...] oldest 1 2 3 [Reference Range]: Height 165 cm 165 cm 165 cm (03/09/20 10:46 AM) (03/09/20 9:01 AM) (03/08/20 11 :47 PM) Weight 78 kg 78 kg 78 kg (03/09/20 10:46 AM) (03/09/20 9:01 AM) (03/08/20 11 :47 PM) Oxygen Saturation [94-100 97 % 97 % 96 % %] (03/09/20 10:46 AM) (03/09/20 9:01 AM) (03/09/20 5: 00 AM) Pulse Rate [55-90 bpm] 79 bpm 85 bpm 87 bpm (03/09/20 10:46 AM) (03/09/20 9:01 AM) (03/09/20 5: 00 AM) Body Mass Index 28.65 28.65 [18.5-24.99] *H* *H* (03/09/20 10:46 AM) (03/09/20 9:01 AM) Blood Pressure 127/73 mm Hg 131/93 mm Hg 116/78 mm Hg [90-138/55-84 mm Hg] (03/09/20 10:46 AM) (03/09/20 9:01 AM) ( 5:00 AM) Respiratory Rate [16-30 19 br/min 18 br/min 13 br/mi n br/min] (03/09/20 10:46 AM) (03/09/20 9:01 AM) *L* (03/09/20 5:00 AM ) Temperature [96.8-100.4 97.5 DegF 98.3 DegF 98.3 Deg F DegF] (03/09/20 9:01 AM) (03/09/20 5:00 AM) (03/09/20 1:0 0 AM) Mode of Delivery (Oxygen) Room air Room air Room a ir (03/09/20 10:46 AM) (03/09/20 9:01 AM) (03/09/20 5: 00 AM) Blood pressure sites Arm, left Arm, left Arm, left (03/09/20 10:46 AM) (03/09/20 9:01 AM) (03/09/20 5: 00 AM) Temperature Route Oral Oral Oral (03/09/20 9:01 AM) (03/09/20 5:00 AM) (03/09/20 1:0 0 AM) Dry Weight 78 kg 78 kg 78 kg (03/09/20 10:46 AM) (03/09/20 9:01 AM) (03/08/20 11 :47 PM) Weight Obtained Via Patient/family stated (03/08/20 11:47 PM) Dry Weight Obtained Via Patient/family stated (03/08/20 11:47 PM) Social History Social History Type Response Smoking Status Current every day smoker; Ty pe: Cigarettes1 entered on: 10/25/13 Sex 11/2 pack per day
--- OUTSIDE RECORDS SUMMARY | 2022-07-18 15:36 | XMS_ITS | Continuity of Care Document ---
:1980 Author Organization [facility] Address [address] [place] [address]- Care Team Providers Name Role Phone Not on Staff, PCP Primary Care Physician Unavailable [place] [facility] 09/25/20 - 09/27/20 [facility] Inpatient Psych[facility] [address] [place] [address]- Discharge Disposition: A-D/C Home Attending Physician: Adilene [...] Refuses 1Admin Note: SANOFI PASTEUR Medications gabapentin 300 mg oral capsule 600 mg, Capsule, By Mouth, 09/26/20 21:00:00 EST Start Date: 09/26/20 Stop Date: 09/26/20 Status: Completedgabapentin 300 mg oral capsule 600 mg, Capsule, By Mouth, 09/27/20 9:00:00 EST Start Date: 09/27/20 Stop Date: 09/27/20 Status: Completedgabapentin 600 mg oral tablet 1 tablet = [...] Height 163 cm 163 cm 163 cm (09/26/20 4:38 PM) (09/25/20 11:12 PM) (09/25/20 4: 11 PM) Weight 61.6 kg 64 kg 64 kg (09/25/20 10:20 AM) (09/25/20 3:14 AM) (09/24/20 3: 36 PM) Oxygen Saturation [94-100 %] 96 % 100 % 98 % (09/26/20 4:38 PM) (09/25/20 11:12 PM) (09/25/20 4: 11 PM) Pulse Rate [55-90 bpm] 107 bpm 96 bpm 105 bpm *H* *H* *H* (09/27/20 8:33 AM) (09/26/20 10:29 PM) (09/26/20 4 :38 PM) Body Mass Index [18.5-24.99] 23.18 24.09 24. 09 (09/25/20 10:20 AM) (09/25/20 3:14 AM) (09/24/20 3: 36 PM) Blood Pressure [90-138/55-84 119/76 mm Hg 131/86 mm Hg 125 /91 mm Hg mm Hg] (09/27/20 8:33 AM) (09/26/20 10:29 PM) (09/26/20 4 :38 PM) Respiratory Rate [16-30 16 br/min 16 br/min 16 br/mi n br/min] (09/27/20 8:42 AM) (09/26/20 10:30 PM) (09/26/20 1 0:29 PM) Temperature [96.8-100.4 97.5 DegF 97.8 DegF 97.1 Deg F DegF] (09/27/20 8:33 AM) (09/26/20 4:38 PM) (09/26/20 8: 07 AM) Mode of Delivery (Oxygen) Room air Room air Room a ir (09/26/20 4:38 PM) (09/25/20 11:12 PM) (09/25/20 4: 11 PM) Blood pressure sites Arm, left Arm, left Arm, left (09/26/20 4:38 PM) (09/25/20 11:12 PM) (09/25/20 4: 11 PM) Temperature Route Temporal Temporal Temporal (09/26/20 4:38 PM) (09/26/20 1:17 AM) (09/25/20 11: 12 PM) Dry Weight 61.6 kg 64 kg 64 kg (09/25/20 10:20 AM) (09/25/20 3:14 AM) (09/24/20 3: 36 PM) Weight Obtained Via Standing scale (09/25/20 10:20 AM) Dry Weight Obtained Via Standing scale (09/25/20 10:20 AM) Sensory deficits None (09/25/20 10:20 AM) Social History Social History Type Response Smoking Status Current every day smoker; Ty pe: Cigarettes1 entered on: 10/25/13 Sex 11/2 pack per day
[2022-07-18 17:01] VITALS: BP 139/85; PULSE 114; RESP 18; TEMP 36.6; O2SAT 96
--- NOTE | 2022-07-18 18:47 | MHC.RECOVSUP ---
? Reason for consult Recovery support o Current location: [facility] o Identified substance use concern: Alcohol - Withdrawal - Seeking ATS (detox) - Support ? Intervention: o Community resources provided o Harm reduction discussion ? Plan: o Follow up tomorrow o Patient awaiting crisis evaluation o Patient to follow up with [facility] after discharge ? Additional information: Patient wants to go to detox.. Stated that he really going through withdrawal.. I called detoxes and there isnt any bed at the moment
--- NOTE | 2022-07-18 19:10 | MHC.CARE ---
CARE Team met with pt. Pt explains that he is experiencing withdrawal sx's and has been drinking heavily. He is interested in getting his drinking under control. He denies SI at this time. Pt is homeless and has no resources, he is seeking detox at this time. CARE team went and spoke to Eb and asked Eb to see pt.
[2022-07-18 19:35] VITALS: BP 125/71; PULSE 101; TEMP 36.4; O2SAT 97
[2022-07-19] MEDS: LORazepam 1 MG TABLET 2 MG PO ×2 (03:29→07:44)
[2022-07-19 03:43] VITALS: BP 133/88; PULSE 78; RESP 16; TEMP 37.2; O2SAT 98
--- NOTE | 2022-07-19 06:39 | PC.NURSE ---
Patient slept comfortably during the overnight. CIWA per protocol. 15min checks throughtout the night. NO s/s of withdrawal.
--- NOTE | 2022-07-19 09:17 | PC.NURSE ---
pt pacing, irritated that breakfast hasn't come yet. staff provided pt with coffee and a donut from the break room. pt reporting that he wants to file a complaint.
--- NOTE | 2022-07-19 09:56 | PC.NURSE ---
pt requesting to d/c as staff has been unable to google his friends/family phone numbers and pt does not have a cell phone. hospital internet security explained to the pt - pt speaking with Simone, recovery rn and seeking detox, pt does not want to wait for a detox bed any longer.
--- NOTE | 2022-07-19 10:25 | MHC.RECOVSUP ---
Recovery Support note: This production underwriter met with patient to discuss ATS referrals. Patient reports he does not want to go to a local detox and that he is wants to get into treatment in [place]. Patient is willing to be referred to [facility]. Patient attempted intake with [facility] however stated he couldn't go due to insurance issues. [facility] accepted patient for treatment however a bed would not be available until tomorrow. Patient informed. Patient requesting discharge, stating he does not want to wait until tomorrow because he is too hyper. Patient provided with contact information for this production underwriter in the event that he needs assistance after discharge. Patient provided with bus passes. Discussed case with CARE Team, RN and ED provider.
== END 2022-07-19 10:34 | disposition home or self-care (01) ==
PROVIDERS: Emergency Medicine; Nurse Practitioner Family; Emergency Provider Emergency Medicine; PCP Family Medicine
DX: F10.229 Alcohol dependence with intoxication, unspecified (principal); R51.9 Headache, unspecified; Y90.8 Blood alcohol level of 240 mg/100 ml or more; Z79.899 Other long term (current) drug therapy; Z20.822 Contact with and (suspected) exposure to COVID-19
CPT/HCPCS: 70450; 80053; 80307; 82077; 85025; 87635; 99284

== ENCOUNTER 2022-07-20 15:48 | Emergency (ER) | payer MEDICARE, MEDICAID, SELFPAY ==
[2022-07-20 16:50] VITALS: BP 138/90; PULSE 108; RESP 16; TEMP 36.1; O2SAT 96; BMI 25.0
--- NOTE | 2022-07-20 17:31 | ED_ITS ---
HPI - Alcohol General Chief Complaint: Psychiatric Symptoms Stated Complaint: ETOH Time Seen by Provider: 07/20/22 17:06 Source: patient Mode of arrival: ambulatory Limitations: no limitations History of Present Illness HPI narrative: Patient alcoholic been here frequently came here drunk with unsteady gait drinks about 1-2 pt of hard liquor every day says that he wants to kill himself by overdosing but drinking requesting detox Related Data Home Medications Medication Instructions Recorded Confirmed No Known Home Meds 07/20/22 07/20/22 Allergies Allergy/AdvReac Type Severity Reaction Status Date / Time prednisone [PREDNISONE] Allergy Unknown MANIC Verified 07/18/22 19:30 Review of Systems Review of Systems: Yes all other systems are reviewed and are negative [facility] Social History Social History Advance Directives: No Advance Directives Information Provided: No Physical Exam ED Vital Signs: Vital Signs - 24 hr 07/20/22 16:50 Temperature 96.9 F Pulse Rate 108 H Respiratory Rate 16 Blood Pressure 138/90 H Pulse Oximetry 96 Oxygen Delivery Method Room Air BMI result Body Mass Index 25.0 Appearance: Alert. Oriented X3. No acute distress. Intoxicated sleeping Eyes: PERRLA, No Nystagmus ENT: Pharynx normal. Oral Mucosa moist Neck: Normal inspection. Neck supple. CVS: Normal heart rate and rhythm. Pulses normal. Respiratory: No respiratory distress. Equal air entry bilateral, no wheezing/rales/rhonchi Abdomen: Soft and nontender. Bowel sounds are present, no mass palpable, no CVA tenderness Skin: Skin warm and dry. Normal skin color. Normal skin turgor. Extremities: No lower extremity edema. No calf tenderness psych: Intoxicated denies any hallucination/ delusion Neuro: Oriented X 3. No motor deficit. No sensory deficit.No cerebellar signs , cranial nerves II-XII intact MDM - Alcohol MDM Narrative Medical decision making narrative: Patient with alcohol abuse came for increased depression suicidal feeling patient is still intoxicated will wait for him to get sober and get crisis evaluation Lab Data Attestation: I reviewed the patient's lab results. Result diagrams: 07/20/22 18:45 07/20/22 18:45 Labs: Lab Results 10/02/22 10/02/22 10/02/22 Range/Units 18:30 18:30 18:30 WBC (4.8-10.8) X10*3/uL RBC (4.60-5.80) X10*6/uL Hgb (14.0-18.0) g/dl Hct (42.0-52.0) % MCV (80.0-98.0) fL MCH (27.0-33.0) pg MCHC (31.0-36.0) g/dl RDW (11.0-16.0) % Plt Count (160-400) X10*3/uL MPV (9.4-12.4) fL Immature Gran % (Auto) (0.0-0.4) % Neut % (Auto) (45-73) % Lymph % (Auto) (20-40) % Charles % (Auto) (2-11) % Eos % (Auto) (0-4) % Baso % (Auto) (0-2) % Lymph # (Auto) (1.2-4.9) X10*3/uL Charles # (Auto) (0.1-1.2) X10*3/uL Eos # (Auto) (0.0-0.4) X10*3/uL Baso # (Auto) (0.0-0.2) X10*3/uL Abs Immat Gran (auto) (0.00-0.03) X10*3/uL Absolute Neuts (auto) (2.0-8.3) x10*3/uL Absolute Nucleated RBC (0.0-0.012) X10*3/uL Nucleated RBC % (auto) (0.0-0.2) /100WBC PT (10.0-13.1) SEC INR (0.9-1.1) Sodium (135-145) mmol/L Potassium (3.3-5.1) mmol/L Chloride (96-108) mmol/L Carbon Dioxide (22-29) mmol/L Anion Gap (12-20) BUN (9-16) mg/dL Creatinine (0.5-1.4) mg/dL Estim Creat Clear Calc Estimated GFR Random Glucose (60-115) mg/dL Calcium (8.4-10.2) mg/dL Magnesium (1.6-2.6) mg/dL Total Bilirubin (0.0-1.0) mg/dL AST (5-37) U/L ALT (0-40) U/L Alkaline Phosphatase (39-117) U/L Total Protein (6.5-8.0) g/dL Albumin (3.5-5.0) g/dL Urine Color Yellow Urine Appearance Clear Urine pH 6.5 (5.0-9.0) Ur Specific Goodrich <= 1.005 (1.005-1.025) Urine Protein Negative (Neg-Trace) mg/dL Urine Glucose (UA) Negative (Negative) mg/dL Urine Ketones Negative (Negative) mg/dL Urine Blood Negative (Negative) Urine Nitrite Negative (Negative) Ur Leukocyte Esterase Negative (Negative) Urine Opiates Screen Not Detected (Not Detect) Urine Fentanyl Screen Not Detected (Not Detect) Ur Barbiturates Screen POSITIVE H (Not Detect) Ur Phencyclidine Scrn Not Detected (Not Detect) Ur Amphetamines Screen Not Detected (Not Detect) U Benzodiazepines Scrn Not Detected (Not Detect) Urine Cocaine Screen POSITIVE H (Not Detect) U Marijuana (THC) Screen Not Detected (Not Detect) Ethyl Alcohol mg/dL COVID-19 (MAXX) Negative (Negative) COVID-19 Clin Com See Note 07/20/22 07/20/22 07/20/22 Range/Units 18:45 18:45 18:45 WBC 7.0 (4.8-10.8) X10*3/uL RBC 4.61 (4.60-5.80) X10*6/uL Hgb 14.0 (14.0-18.0) g/dl Hct 40.6 L (42.0-52.0) % MCV 88.1 (80.0-98.0) fL MCH 30.4 (27.0-33.0) pg MCHC 34.5 (31.0-36.0) g/dl RDW 13.0 (11.0-16.0) % Plt Count 189 (160-400) X10*3/uL MPV 9.1 L (9.4-12.4) fL Immature Gran % (Auto) 0.1 (0.0-0.4) % Neut % (Auto) 74.9 H (45-73) % Lymph % (Auto) 18.4 L (20-40) % Charles % (Auto) 4.7 (2-11) % Eos % (Auto) 1.6 (0-4) % Baso % (Auto) 0.3 (0-2) % Lymph # (Auto) 1.3 (1.2-4.9) X10*3/uL Charles # (Auto) 0.3 (0.1-1.2) X10*3/uL Eos # (Auto) 0.1 (0.0-0.4) X10*3/uL Baso # (Auto) 0.0 (0.0-0.2) X10*3/uL Abs Immat Gran (auto) 0.01 (0.00-0.03) X10*3/uL Absolute Neuts (auto) 5.2 (2.0-8.3) x10*3/uL Absolute Nucleated RBC 0.000 (0.0-0.012) X10*3/uL Nucleated RBC % (auto) 0.0 (0.0-0.2) /100WBC PT 10.5 (10.0-13.1) SEC INR 0.9 (0.9-1.1) Sodium 141 (135-145) mmol/L Potassium 3.7 (3.3-5.1) mmol/L Chloride 105 (96-108) mmol/L Carbon Dioxide 19 L (22-29) mmol/L Anion Gap 21 H (12-20) BUN 9 (9-16) mg/dL Creatinine 0.98 (0.5-1.4) mg/dL Estim Creat Clear Calc 85.4 Estimated GFR > 60 Random Glucose 86 (60-115) mg/dL Calcium 8.7 (8.4-10.2) mg/dL Magnesium 2.1 (1.6-2.6) mg/dL Total Bilirubin 0.4 (0.0-1.0) mg/dL AST 69 H (5-37) U/L ALT 45 H (0-40) U/L Alkaline Phosphatase 64 D (39-117) U/L Total Protein 7.0 (6.5-8.0) g/dL Albumin 4.3 (3.5-5.0) g/dL Urine Color Urine Appearance Urine pH (5.0-9.0) Ur Specific Goodrich (1.005-1.025) Urine Protein (Neg-Trace) mg/dL Urine Glucose (UA) (Negative) mg/dL Urine Ketones (Negative) mg/dL Urine Blood (Negative) Urine Nitrite (Negative) Ur Leukocyte Esterase (Negative) Urine Opiates Screen (Not Detect) Urine Fentanyl Screen (Not Detect) Ur Barbiturates Screen (Not Detect) Ur Phencyclidine Scrn (Not Detect) Ur Amphetamines Screen (Not Detect) U Benzodiazepines Scrn (Not Detect) Urine Cocaine Screen (Not Detect) U Marijuana (THC) Screen (Not Detect) Ethyl Alcohol 263 mg/dL COVID-19 (MAXX) (Negative) COVID-19 Clin Com Discharge Plan Discharge Clinical Impression: Suicidal ideation, Depression, Alcohol intoxication Patient Disposition: Still a Patient Prescriptions: No Action No Known Home Meds
--- NOTE | 2022-07-20 17:35 | PC.NURSE ---
aure gerard and attending MD said orders may wait until awake.
[2022-07-20 18:48] LABS: Appearance Urine Clear; Color Urine Yellow; Glucose Urine UA Negative (Negative); Leukocyte Esterase Urine Negative (Negative); Nitrite Urine Negative (Negative); PH 6.5 (5.0-9.0); Specific Gravity - Urine <= 1.005 (1.005-1.025); Urine Blood Negative (Negative); Urine Ketones Negative (Negative); Urine Protein Negative (Neg-Trace)
[2022-07-20 18:49] LABS: MANUAL DIFF FLAG NO
[2022-07-20 18:52] LABS: Basophils Percent Auto 0.3 % (0-2); Eosinophils Absolute Auto 0.1 X10*3/uL (0.0-0.4); Eosinophils Percent Auto 1.6 % (0-4); Hematocrit 40.6 % (42.0-52.0); Imm Gran Abs Auto 0.01 X10*3/uL (0.00-0.03); Imm Gran Pct Auto 0.1 % (0.0-0.4); Lymphocytes Absolute Auto 1.3 X10*3/uL (1.2-4.9); Lymphocytes Percent Auto 18.4 % (20-40); Mean Corpuscular HGB Conc 34.5 g/dl (31.0-36.0); Mean Corpuscular Hemoglobin 30.4 pg (27.0-33.0); Mean Corpuscular Volume 88.1 fL (80.0-98.0); Mean Platelet Volume 9.1 fL (9.4-12.4); Monocytes Absolute Auto 0.3 X10*3/uL (0.1-1.2); Monocytes Percent Auto 4.7 % (2-11); Neutrophils Absolute Auto 5.2 x10*3/uL (2.0-8.3); Neutrophils Percent Auto 74.9 % (45-73); Platelet Count 189 X10*3/uL (160-400); Red Blood Count 4.61 X10*6/uL (4.60-5.80)
[2022-07-20 18:56] LABS: COVID-19 Test Negative (Negative); IDNOW Serial# 16C4AD1C
[2022-07-20 18:57] LABS: INTERNATIONAL NORM RATIO 0.9 (0.9-1.1); Prothrombin Time 10.5 SEC (10.0-13.1)
[2022-07-20 19:04] LABS: Amphetamine Screen Urine Not Detected (Not Detect); Barbiturates, Urine POSITIVE (Not Detect); Benzodiazepines Screen Urine Not Detected (Not Detect); Cannabinoid Screen Urine Not Detected (Not Detect); Cocaine Screen Urine POSITIVE (Not Detect); Fentanyl, urine Not Detected (Not Detect); Opiate Screen Urine Not Detected (Not Detect); Phencyclidine Screen Urine Not Detected (Not Detect)
[2022-07-20 19:07] LABS: Alanine Aminotransferase 45 U/L (0-40); Albumin Level 4.3 g/dL (3.5-5.0); Alkaline Phosphatase 64 U/L (39-117); Anion Gap 21 (12-20); Aspartate Amino Transferase 69 U/L (5-37); Bilirubin Total 0.4 mg/dL (0.0-1.0); Blood Urea Nitrogen 9 mg/dL (9-16); Calcium 8.7 mg/dL (8.4-10.2); Carbon Dioxide 19 mmol/L (22-29); Chloride 105 mmol/L (96-108); Creatinine Clr Calc Pharmacy 85.4; Estimated Glomerular Filt Rate > 60; Ethanol 263 mg/dL; Glucose Random 86 mg/dL (60-115); Magnesium 2.1 mg/dL (1.6-2.6); Potassium 3.7 mmol/L (3.3-5.1); Sodium 141 mmol/L (135-145)
[2022-07-20] MEDS: Nicotine Polacrilex 2 MG GUM BUCCAL (20:08)
--- NOTE | 2022-07-20 20:13 | PC.NURSE ---
Patient requesting Nicotine gum, doctor was notified and order was place,one dose given. Patient in his room ,pleasant and cooperative at time little anxious.Will continue to monitor.
[2022-07-20] MEDS: LORazepam 1 MG TABLET 2 MG PO (20:39)
--- NOTE | 2022-07-20 20:44 | PC.NURSE ---
Patient C/O feeling anxious, restless, Ativan po given, will continue to monitor.
--- NOTE | 2022-07-20 21:30 | PC.NURSE ---
Patient continue requesting multiple medication Benadryl for his allergies, something for his anxiety, Tums for his stomach continue to passing the hallway, at times screaming, at this moment he is taking a shower as per staff request. Will continue to monitor.
[2022-07-20] MEDS: diphenhydrAMINE HCL 25 MG TABLET 50 MG PO (21:44)
--- NOTE | 2022-07-21 06:28 | PC.NURSE ---
Patient sleeping comfortably. No distress noted. will continue to monitor.
[2022-07-21 06:36] VITALS: BP 105/73; PULSE 77; RESP 17; TEMP 36.6; O2SAT 96
[2022-07-21] MEDS: LORazepam 1 MG TABLET 2 MG PO ×2 (08:38→12:27)
[2022-07-21 08:41] VITALS: BP 122/76; PULSE 91; RESP 17; O2SAT 98
--- NOTE | 2022-07-21 08:41 | PC.NURSE ---
alert, speech clear, skin wpd, steady gait, c/o withdrawl and anxiety , medicated w ativan prn, vs stable
[2022-07-21 12:28] VITALS: BP 116/67; PULSE 81; RESP 18; TEMP 36.7; O2SAT 97
--- NOTE | 2022-07-21 12:29 | PC.NURSE ---
c/o anxiety and withdrawl, alert, speech clear, skin wpd, medicated as ordered w ativan, vs stable, production recovery operator in to speak w/ pt and pt wants to go to a specific detox called [facility]
--- NOTE | 2022-07-21 13:10 | PC.NURSE ---
Em from recovery stated that they are unable to get the patient into the detox pt wanted in [place] that pt was requesting, pt refusing all other detox facilities at this time. recovery stated that pt can discharge and he can attempt to get into detox on his own. pt has signed paperwork, gotten dressed, and will be discharged shortly. pt requesting bus pass, will attempt to get bus.
--- NOTE | 2022-07-21 13:29 | MHC.RECOVRN ---
T/W met w/ pt, pt alert upon verbal stimuli. Pt reports drinking several pints daily for past few weeks. Pt states is not feeling well, anxious, nauseous. Pt states only interested in [facility] in [place] for ATS. Pt states not interested in any other ATS facilities. T/W inquired at [facility], intake confirmed they do not accept [employer] insurance, only for a Section 12. T/W reviewed this w/ pt. T/W offered referral to other [place] detoxes. Pt states not interested at this time, requesting to discharge. T/W gave pt [facility] information to f/u in the community. RN aware.
== END 2022-07-21 13:15 | disposition home or self-care (01) ==
PROVIDERS: Emergency Provider Internal Medicine
DX: F33.1 Major depressive disorder, recurrent, moderate (principal); R45.851 Suicidal ideations; F10.129 Alcohol abuse with intoxication, unspecified; Y90.8 Blood alcohol level of 240 mg/100 ml or more; Z20.822 Contact with and (suspected) exposure to COVID-19; Z79.899 Other long term (current) drug therapy
CPT/HCPCS: 80053; 80307; 81003; 82077; 83735; 85025; 85610; 87635; 99283; Q0163

== ENCOUNTER 2022-07-21 21:56 | Emergency (ER) | payer MEDICARE, MEDICAID, SELFPAY ==
[2022-07-21 22:12] VITALS: BP 127/85; PULSE 91; RESP 18; TEMP 36.7; O2SAT 97; BMI 23.1
[2022-07-21 22:27] LABS: MANUAL DIFF FLAG NO
[2022-07-21 22:28] LABS: Basophils Absolute Auto 0.1 X10*3/uL (0.0-0.2); Basophils Percent Auto 0.7 % (0-2); Eosinophils Absolute Auto 0.1 X10*3/uL (0.0-0.4); Eosinophils Percent Auto 1.5 % (0-4); Hematocrit 44.2 % (42.0-52.0); Hemoglobin 15.2 g/dl (14.0-18.0); Imm Gran Abs Auto 0.02 X10*3/uL (0.00-0.03); Imm Gran Pct Auto 0.3 % (0.0-0.4); Lymphocytes Absolute Auto 1.6 X10*3/uL (1.2-4.9); Lymphocytes Percent Auto 21.4 % (20-40); Mean Corpuscular HGB Conc 34.4 g/dl (31.0-36.0); Mean Corpuscular Hemoglobin 30.4 pg (27.0-33.0); Mean Corpuscular Volume 88.4 fL (80.0-98.0); Monocytes Absolute Auto 0.5 X10*3/uL (0.1-1.2); Monocytes Percent Auto 6.8 % (2-11); Neutrophils Absolute Auto 5.2 x10*3/uL (2.0-8.3); Neutrophils Percent Auto 69.3 % (45-73); Platelet Count 213 X10*3/uL (160-400); Red Cell Distribution Width 13.2 % (11.0-16.0); White Blood Count 7.5 X10*3/uL (4.8-10.8)
[2022-07-21 22:55] LABS: Anion Gap 21 (12-20); Blood Urea Nitrogen 13 mg/dL (9-16); Calcium 9.1 mg/dL (8.4-10.2); Carbon Dioxide 19 mmol/L (22-29); Chloride 105 mmol/L (96-108); Creatinine Clr Calc Pharmacy 89.5; Estimated Glomerular Filt Rate > 60; Ethanol 309 mg/dL; Glucose Random 95 mg/dL (60-115); Potassium 3.8 mmol/L (3.3-5.1); Sodium 141 mmol/L (135-145)
--- NOTE | 2022-07-22 00:01 | PC.NURSE ---
pt sleeping in the waiting room on the floor.
--- NOTE | 2022-07-22 02:00 | ED.PSYCH ---
HPI - Psych General Chief Complaint: ETOH/Substance Use Stated Complaint: detox Time Seen by Provider: 07/22/22 01:35 Source: patient Mode of arrival: ambulatory Limitations: no limitations History of Present Illness HPI Narrative: 42-year-old male who is well-known to our staff for mental and psych disorders, patient admitted to drinking alcohol last night came into the hospital feeling suicidal, stated he would overdose on medication to kill himself, patient was just discharged to detox today. Patient appear intoxicated. Related Data Home Medications Medication Instructions Recorded Confirmed No Known Home Meds 07/22/22 07/22/22 Allergies Allergy/AdvReac Type Severity Reaction Status Date / Time prednisone [PREDNISONE] Allergy Unknown MANIC Verified 07/21/22 22:12 Review of Systems Review of Systems: All other systems are reviewed and are negative Constitutional: Reports as per HPI and Reports no additional constitutional complaints Eyes: Reports as per HPI and Reports no additional eye complaints Reports system reviewed and no additional complaints, except as documented Cardiovascular: Reports as per HPI and Reports no additional cardiovascular complaints Respiratory: Reports as per HPI and Reports no additional respiratory complaints Gastrointestinal: Reports as per HPI and Reports no additional gastrointestinal complaints Genitourinary: Reports no additional female genitourinary complaints Musculoskeletal: Reports no additional musculoskeletal complaints Skin/Breast: Reports system reviewed and no additional complaints, except as docu Psychiatric: Reports no additional psychiatric complaints Endocrine: Reports no additional endocrine complaints Hematologic/Lymphatic: Reports no additional hematologic/lymphatic complaints Allergic/Immunologic: Reports no additional allergic/immunologic complaints Reports system reviewed and no additional complaints, except as documented and Reports Abnormal speech present [facility] Past Medical History Medical History Alcohol dependence Traumatic brain injury Social History Social History Advance Directives: No Advance Directives Information Provided: Yes Physical Exam Vital Signs: Vital Signs: Last Vital Signs Temp 96.8 F 07/22/22 02:02 Pulse 89 07/22/22 02:02 Resp 16 07/22/22 02:02 BP 122/96 H 07/22/22 02:02 Pulse Ox 98 07/22/22 02:02 O2 Del Method 07/22/22 02:02 BMI result Body Mass Index 23.1 Vital signs have been reviewed as appeared to be correct. Blood pressure normal. Heart rate normal. Respiration rate normal. Temperature normal. Oxygen saturation normal. Appearance: Alert. Oriented X3. No acute distress. Alcohol on breath and appear intoxicated. Head: Normal external exam. Normocephalic. Atraumatic. No Mejia signs noted. No raccoon eyes noted Eyes: PERRLA. EOMI. Conjunctiva and sclera normal. Eyelids normal. ENT: TM's Normal. Pharynx normal. Uvula midline. Moist mucous membranes. No trismus noted. No drooling noted. No muffled voice noted. Neck: Normal inspection. Neck supple. FROM. No adenopathy. Thyroid Normal. No meningeal signs. No neck mass noted. CVS: Normal heart rate and rhythm. Heart sound normal. No murmurs noted. Pulses normal throughout. Respiratory: No respiratory distress. Painless inspiration. Breath sounds normal. No wheezes/rales/rhonchi noted. Chest nontender. No accessory muscle usage noted or decreased air movement noted. Abdomen: Soft and nontender. Bowel sounds normal in all 4 quadrants. No distention noted. No organomegaly noted. No visible injury noted. Back: No CVA tenderness. Full range of motion noted. Skin: Skin warm and dry. Normal skin color. Normal skin turgor. No rashes/lesions/lacerations noted. Extremities: No lower extremity edema. Extremities exhibit normal range of motion. Extremities nontender. Neuro: Oriented X 3. Cranial nerve exam: II-XII are grossly intact No motor deficit. No sensory deficit. Reflexes normal Patient Orientation: Person, Place, Time and Situation, okay hygiene and grooming. Fair eye contact, attentive, no tics or tremors. Level of Consciousness: Awake, Appropriate and Alert Patient Behavior: Appropriate, Guarded, Cooperative and Anxious Mood Description: Constricted, Blunted and Apprehensive Affect Description: Constricted, Blunted and Apprehensive Patient Cognition Impaired: No Ability to Follow Directions: Excellent Speech Pattern: Clear, Appropriate and Spontaneous Speech, nonpressured, spontaneous with regular rate and rhythm, normal volume and prosody. No dysarthria. Memory Description: Intact, Immediate Intact and Short Term Intact Hallucinations: None Delusions: Not Present Thought Process: Intact Thought Content: positive for Intact, positive for Logical, presence of Suicidal Ideation and denies Homicidal Ideation. Depressive Symptoms: Not present. Judgement and Insight: Limited but adequate. MDM - Psych Lab Data Result diagrams: 07/21/22 22:22 07/21/22 22:22 Labs: Lab Results 07/21/22 07/21/22 07/22/22 Range/Units 22:22 22:22 02:01 WBC 7.5 (4.8-10.8) X10*3/uL RBC 5.00 (4.60-5.80) X10*6/uL Hgb 15.2 (14.0-18.0) g/dl Hct 44.2 (42.0-52.0) % MCV 88.4 (80.0-98.0) fL MCH 30.4 (27.0-33.0) pg MCHC 34.4 (31.0-36.0) g/dl RDW 13.2 (11.0-16.0) % Plt Count 213 (160-400) X10*3/uL MPV 9.0 L (9.4-12.4) fL Immature Gran % (Auto) 0.3 (0.0-0.4) % Neut % (Auto) 69.3 (45-73) % Lymph % (Auto) 21.4 (20-40) % Alcorn % (Auto) 6.8 (2-11) % Eos % (Auto) 1.5 (0-4) % Baso % (Auto) 0.7 (0-2) % Lymph # (Auto) 1.6 (1.2-4.9) X10*3/uL Alcorn # (Auto) 0.5 (0.1-1.2) X10*3/uL Eos # (Auto) 0.1 (0.0-0.4) X10*3/uL Baso # (Auto) 0.1 (0.0-0.2) X10*3/uL Abs Immat Gran (auto) 0.02 (0.00-0.03) X10*3/uL Absolute Neuts (auto) 5.2 (2.0-8.3) x10*3/uL Absolute Nucleated RBC 0.000 (0.0-0.012) X10*3/uL Nucleated RBC % (auto) 0.0 (0.0-0.2) /100WBC Sodium 141 (135-145) mmol/L Potassium 3.8 (3.3-5.1) mmol/L Chloride 105 (96-108) mmol/L Carbon Dioxide 19 L (22-29) mmol/L Anion Gap 21 H (12-20) BUN 13 (9-16) mg/dL Creatinine 0.90 (0.5-1.4) mg/dL Estim Creat Clear Calc 89.5 Estimated GFR > 60 Random Glucose 95 (60-115) mg/dL Calcium 9.1 (8.4-10.2) mg/dL Urine Opiates Screen Not Detected (Not Detect) Urine Fentanyl Screen Not Detected (Not Detect) Ur Barbiturates Screen POSITIVE H (Not Detect) Ur Phencyclidine Scrn Not Detected (Not Detect) Ur Amphetamines Screen Not Detected (Not Detect) U Benzodiazepines Scrn POSITIVE H (Not Detect) Urine Cocaine Screen POSITIVE H (Not Detect) U Marijuana (THC) Screen Not Detected (Not Detect) Ethyl Alcohol 309 H* mg/dL COVID-19 (MAXX) (Negative) COVID-19 Clin Com 07/22/22 Range/Units 02:01 WBC (4.8-10.8) X10*3/uL RBC (4.60-5.80) X10*6/uL Hgb (14.0-18.0) g/dl Hct (42.0-52.0) % MCV (80.0-98.0) fL MCH (27.0-33.0) pg MCHC (31.0-36.0) g/dl RDW (11.0-16.0) % Plt Count (160-400) X10*3/uL MPV (9.4-12.4) fL Immature Gran % (Auto) (0.0-0.4) % Neut % (Auto) (45-73) % Lymph % (Auto) (20-40) % Alcorn % (Auto) (2-11) % Eos % (Auto) (0-4) % Baso % (Auto) (0-2) % Lymph # (Auto) (1.2-4.9) X10*3/uL Alcorn # (Auto) (0.1-1.2) X10*3/uL Eos # (Auto) (0.0-0.4) X10*3/uL Baso # (Auto) (0.0-0.2) X10*3/uL Abs Immat Gran (auto) (0.00-0.03) X10*3/uL Absolute Neuts (auto) (2.0-8.3) x10*3/uL Absolute Nucleated RBC (0.0-0.012) X10*3/uL Nucleated RBC % (auto) (0.0-0.2) /100WBC Sodium (135-145) mmol/L Potassium (3.3-5.1) mmol/L Chloride (96-108) mmol/L Carbon Dioxide (22-29) mmol/L Anion Gap (12-20) BUN (9-16) mg/dL Creatinine (0.5-1.4) mg/dL Estim Creat Clear Calc Estimated GFR Random Glucose (60-115) mg/dL Calcium (8.4-10.2) mg/dL Urine Opiates Screen (Not Detect) Urine Fentanyl Screen (Not Detect) Ur Barbiturates Screen (Not Detect) Ur Phencyclidine Scrn (Not Detect) Ur Amphetamines Screen (Not Detect) U Benzodiazepines Scrn (Not Detect) Urine Cocaine Screen (Not Detect) U Marijuana (THC) Screen (Not Detect) Ethyl Alcohol mg/dL COVID-19 (MAXX) Negative (Negative) COVID-19 Clin Com See Note Discharge Plan Discharge Clinical Impression: Alcoholic intoxication Patient Disposition: Still a Patient Prescriptions: No Action No Known Home Meds
[2022-07-22 02:02] VITALS: BP 122/96; PULSE 89; RESP 16; TEMP 36; O2SAT 98
[2022-07-22 02:23] LABS: Amphetamine Screen Urine Not Detected (Not Detect); Barbiturates, Urine POSITIVE (Not Detect); Benzodiazepines Screen Urine POSITIVE (Not Detect); Cannabinoid Screen Urine Not Detected (Not Detect); Cocaine Screen Urine POSITIVE (Not Detect); Fentanyl, urine Not Detected (Not Detect); Opiate Screen Urine Not Detected (Not Detect); Phencyclidine Screen Urine Not Detected (Not Detect)
[2022-07-22 02:27] LABS: COVID-19 Test Negative (Negative); IDNOW Serial# 16C4AD1C
--- NOTE | 2022-07-22 06:08 | PC.NURSE ---
Patient sleeping comfortably, no distress noted. Referral to N in place. Will continue to monitor.
--- NOTE | 2022-07-22 07:23 | PC.NURSE ---
patient appears to remain asleep at present respirations are even and unlabored patient appears in no distress
[2022-07-22 09:20] VITALS: BP 122/69; PULSE 86; RESP 19; TEMP 36.8; O2SAT 97
[2022-07-22 10:34] VITALS: BP 132/71; PULSE 95; RESP 18; TEMP 36.5; O2SAT 97
[2022-07-22] MEDS: LORazepam 1 MG TABLET 2 MG PO (10:36)
--- NOTE | 2022-07-22 11:24 | MHC.CARE ---
CARE Team met with patient in [facility] as he requested discharge, did not want to wait for a crisis evaluation. Patient denied suicidal ideation, plan or intention and stated he said that because he wanted to stay at the hospital. Would like to go to the [place] area where he has more supports, stated that he has money and can buy a bus ticket. Patient bought a phone yesterday and feels more prepared to seek detox on his own. Has already spoken to Recovery Team and given resources, is familiar with the process.
--- NOTE | 2022-07-22 11:25 | MHC.RECOVRN ---
T/W met w/ pt, pt alert and oriented. Pt reports is not feeling suicidal. Pt states just received medication from RN and is feeling better. Pt reports purchased smart phone yesterday, pt plans to call [facility] detoxes and dual diagnosis programs. Pt requesting to leave. T/W gave pt contact information to detox facilities in [facility], per patients request. Pt reports plans to go to [facility] to take bus back to [facility], where pt plans to access ED in [place] [employer] to then get into [facility] Dual Diagnosis Program. T/W and pt discussed a Lyft by Care team from [facility] to bus station, pt agreeable. Pt given [facility] information. Care Team informed.
== END 2022-07-22 12:11 | disposition home or self-care (01) ==
PROVIDERS: Emergency Provider Emergency Medicine
DX: F10.129 Alcohol abuse with intoxication, unspecified (principal); R45.851 Suicidal ideations; Y90.8 Blood alcohol level of 240 mg/100 ml or more; Z20.822 Contact with and (suspected) exposure to COVID-19; Z79.899 Other long term (current) drug therapy
CPT/HCPCS: 80048; 80307; 82077; 85025; 87635; 99284

== ENCOUNTER 2022-09-20 07:16 | Emergency (ER) | payer MEDICARE, MEDICAID, SELFPAY ==
--- NOTE | 2022-09-20 | ECG_ITS ---
Test Reason : TACHYCARDIA Blood Pressure : / mmHG Vent. Rate : 141 BPM Atrial Rate : 141 BPM P-R Int : 124 ms QRS Dur : 080 ms QT Int : 284 ms P-R-T Axes : 052 028 -39 degrees QTc Int : 434 ms Sinus tachycardia Nonspecific ST and T wave abnormality Abnormal ECG When compared with ECG of 19-OCT-2005 03:08, Vent. rate has increased BY 49 BPM Nonspecific T wave abnormality now evident in Lateral leads Referred By: Generic ED Physician Electronically Signed By:Pato Duke
--- NOTE | ~2022-09-20 | XR_ITS ---
EXAMINATION: XR HIP, RIGHT CLINICAL INFORMATION: Pain status post fall COMPARISON: None TECHNIQUE: AP pelvis and 2 views of the right hip. FINDINGS: There is no evidence of acute fracture or diastases of the pelvis. The hip joints appear maintained bilaterally. Sacroiliac joints appear unremarkable. 2 views of the right hip do not demonstrate evidence of a definite acute fracture or dislocation. No destructive bony lesions identified. No evidence of femoral head collapse is seen. There appears to be some calcification of the distal psoas muscle subtle insertion with the lesser trochanter. XR/XR hip RT w [id number] IMPRESSION: No acute fracture or dislocation of the right hip. No evidence of acute fracture or diastases the pelvis.
--- NOTE | ~2022-09-20 | CT_ITS ---
EXAMINATION: CT HEAD WITHOUT CONTRAST CLINICAL INFORMATION: Unwitnessed seizure. COMPARISON: CT head from 07/17/2022. TECHNIQUE: Contiguous axial imaging was performed from the skull base to vertex without intravenous administration of contrast. This CT examination was performed using dose optimization techniques as appropriate, variously including the following: *Automated exposure control. *Adjustment of mA and/or kV according to patient size (this includes techniques or standardized protocols for targeted exams where dose is matched to indication/reason for exam; i.e. extremities or head). *Use of iterative reconstruction technique. DLP: 681 mGy-cm FINDINGS: There is no evidence of acute intracranial hemorrhage or edematous territorial infarction. Franklin-white matter differentiation is preserved. Chronic regions of encephalomalacia within the anterior left frontal and temporal lobes. No new abnormal brain parenchymal attenuation. The ventricles are normal in morphology and size. No evidence for obstructive hydrocephalus. No abnormal mass effect or midline shift. No extra-axial fluid collections. No acute soft tissue or osseous abnormalities. Mild mucosal thickening of the paranasal sinuses. The mastoid air cells and middle ear cavities are clear. CT/CT head/brain wo IV con IMPRESSION: 1. No evidence of acute intracranial hemorrhage or edematous territorial infarction. 2. Chronic regions of encephalomalacia within the left frontotemporal lobes.
[2022-09-20 07:26] VITALS: BP 137/97; BP 148/88; PULSE 156; PULSE 80; RESP 18; TEMP 36.6; O2SAT 98; BMI 25.7
--- NOTE | 2022-09-20 08:47 | ED_ITS ---
HPI - General Adult General Chief complaint: General Medical Stated complaint: anxiety Time Seen by Provider: 09/20/22 08:45 Source: patient and EMS Mode of arrival: EMS Limitations: other (does not recall events) History of Present Illness HPI narrative: 42-year-old male with history of TBI, seizure disorder, ADHD, hx ETOH abuse/dependene who presents to the ER from his sober house via EMS for evaluation after a possible seizure this morning. Patient has minimal recollection of events but thinks he had a seizure. He states his whole body feels achy, he feels anxious. His friend at the bedside reports new petechial rash around his eyes that was not present yesterday. Patient states he recently stopped taking his Trileptal and Guanfacine and is only taking his Adderall for ADHD. He was recently at a detox and has not dranken any alcohol in 2.5 weeks. Denies all other substance use. History of seizures related to ETOH withdrawal and also not related to withdrawal. Unsure if he fell or hit his head today. He fell yesterday from a chin up bar and fell onto his right hip - c/o pain and difficulty ambulating since. MD complaint: Possible seizure, anxiety Onset (ago): unknown Location: head, face, right and lower extremity Radiation: non-radiation Severity: moderate Quality: aching Pain Consistency: constant Relieving factors: none Exacerbating factors: none Associated symptoms: confusion and headaches Treatments prior to arrival: none Related Data Home Medications Medication Instructions Recorded Confirmed No Known Home Meds 07/22/22 07/22/22 Allergies Allergy/AdvReac Type Severity Reaction Status Date / Time prednisone [PREDNISONE] Allergy Unknown MANIC Verified 09/20/22 07:26 Review of Systems Review of Systems: Constitutional: No Fever, No Chills ENT/Mouth: No sore throat, No Rhinorrhea, No Swallowing Difficulty Eyes: No Eye Pain, No Swelling, + Redness Cardiovascular: No Chest Pain, No SOB, No Orthopnea, No Edema Respiratory: No Cough, No Sputum, No Wheezing, No dyspnea Gastrointestinal: No Nausea, No Vomiting, No Diarrhea, No abdominal Pain Genitourinary: No Dysuria, No Urinary Frequency, No Hematuria Musculoskeletal: + joint pain, + Myalgias Skin: No Skin Lesions, + rash Neuro: No Weakness, No Numbness, No Dizziness, +Headache Psych: + Anxiety/Panic, No Depression Heme/Lymph: + Bruising, No Lymphadenopathy PMFSH Past Medical History Medical History Alcohol dependence Traumatic brain injury Social History Social History Alcohol intake: former Smoked in Last 30 Days: Yes Use of substances other than those prescribed or required for medical reasons: No Advance Directives: No Physical Exam ED Vital Signs: Vital Signs - 24 hr 09/20/22 07:26 09/20/22 09:01 09/20/22 11:05 Temperature 97.8 F 97.8 F Pulse Rate 156 H 108 H 100 Respiratory Rate 18 20 16 Blood Pressure 137/97 H 125/79 108/69 Pulse Oximetry 98 98 98 Oxygen Delivery Method Room Air Room Air Room Air BMI result Body Mass Index 25.7 Appearance: Alert. Oriented X3. No acute distress. Eyes: Petechial periorbial rash. Pupils equal, round and reactive to light. ENT: Pharynx normal. Neck: Normal inspection. Neck supple. CVS: Tachycardic, regular rhythm. Pulses normal. Respiratory: No respiratory distress. Breath sounds normal. Abdomen: Soft and nontender. +BS x4 Skin: Skin warm and dry. Normal skin color. Normal skin turgor. No rashes. Extremities: No lower extremity edema. Right lateral hip tenderness. no deformity. normal ROM Neuro: Oriented X 3. No motor deficit. No sensory deficit. CN II-XII intact. Anxious, hyperverbal. Course Course Course Narrative: 42-year-old male with history of alcohol abuse and dependence now 2 and half weeks sober, history of TBI, history of seizure disorder, ADHD who presents to the ER for evaluation of a possible seizure. On arrival to the ER he is tachycardic to the 150s, sinus rhythm. He is anxious. Exam is nonfocal. Does have petechial rash around his eyes and lower extremity muscle tenderness. Most likely had a grand mal, tonic-clonic seizure today. Will check CPK to assess he r rhabdo. Will check basic labs, CT is head given on known trauma. IV fluids and Versed ordered. Reevaluation(s) Reevaluation #1: CPK in the 400s consistent with mild rhabdomyolysis. No other major electrolyte abnormalities. Alcohol level is negative. Heart rate normalized to the 80s once relaxed. He is complaining of body aches and pains, given NSAID and Tylenol. CT scan of his head showed evidence of old TBI. No traumatic injury. Discussed his lab and imaging results. Comfortable discharge home with re-initiation of his antiepileptic medication. He will follow-up with his primary care doctor. Comfortable DC home. Medications Administered Generic Name Dose Route Start Last Admin Trade Name Freq PRN Reason Stop Dose Admin Sodium Chloride 1,000 mls @ 999 mls/hr 09/20/22 12:00 09/20/22 12:13 Ns IVCONT 09/20/22 13:00 999 mls/hr .Q1H1M DARYA Administration Discontinued Medications Generic Name Dose Route Start Last Admin Trade Name Freq PRN Reason Stop Dose Admin Acetaminophen 975 mg 09/20/22 11:55 09/20/22 12:13 Acetaminophen 325 Mg Tablet PO 09/20/22 11:56 975 mg ONCE ONE Administration Sodium Chloride 1,000 mls @ 999 mls/hr 09/20/22 09:15 09/20/22 11:04 Ns IVCONT 09/20/22 10:15 Infused .Q1H1M DARYA Infusion Ketorolac Tromethamine 30 mg 09/20/22 11:55 09/20/22 12:13 Ketorolac Tromethamine 30 Mg/Ml Vial IVPUSH 09/20/22 11:56 30 mg ONCE ONE Administration Midazolam HCl 2 mg 09/20/22 09:02 09/20/22 09:26 Midazolam Hcl/Pf 2 Mg/2 Ml Vial IVPUSH 09/20/22 09:03 2 mg ONCE ONE Administration Oxcarbazepine 300 mg 09/20/22 10:41 09/20/22 11:06 Oxcarbazepine 300 Mg Tablet PO 09/20/22 10:42 300 mg ONCE ONE Administration Medical Decision Making Lab Data Result diagrams: 09/20/22 09:08 09/20/22 09:08 Labs: Lab Results 09/20/22 09/20/22 09/20/22 Range/Units 09:08 09:08 09:08 WBC 11.3 H (4.8-10.8) X10*3/uL RBC 4.96 (4.60-5.80) X10*6/uL Hgb 14.8 (14.0-18.0) g/dl Hct 43.4 (42.0-52.0) % MCV 87.5 (80.0-98.0) fL MCH 29.8 (27.0-33.0) pg MCHC 34.1 (31.0-36.0) g/dl RDW 13.0 (11.0-16.0) % Plt Count 213 (160-400) X10*3/uL MPV 9.9 (9.4-12.4) fL Immature Gran % (Auto) 0.5 H (0.0-0.4) % Neut % (Auto) 85.6 H (45-73) % Lymph % (Auto) 6.8 L (20-40) % [place] % (Auto) 5.9 (2-11) % Eos % (Auto) 0.9 (0-4) % Baso % (Auto) 0.3 (0-2) % Lymph # (Auto) 0.8 L (1.2-4.9) X10*3/uL [place] # (Auto) 0.7 (0.1-1.2) X10*3/uL Eos # (Auto) 0.1 (0.0-0.4) X10*3/uL Baso # (Auto) 0.0 (0.0-0.2) X10*3/uL Abs Immat Gran (auto) 0.06 H (0.00-0.03) X10*3/uL Absolute Neuts (auto) 9.7 H (2.0-8.3) x10*3/uL Absolute Nucleated RBC 0.000 (0.0-0.012) X10*3/uL Nucleated RBC % (auto) 0.0 (0.0-0.2) /100WBC Sodium 134 L (135-145) mmol/L Potassium 3.8 (3.3-5.1) mmol/L Chloride 104 (96-108) mmol/L Carbon Dioxide 25 (22-29) mmol/L Anion Gap 9 L (12-20) BUN 20 H (9-16) mg/dL Creatinine 1.18 (0.5-1.4) mg/dL Estim Creat Clear Calc 68.2 Estimated GFR > 60 Random Glucose 90 (60-115) mg/dL Calcium 9.5 (8.4-10.2) mg/dL Magnesium 1.9 (1.6-2.6) mg/dL Total Bilirubin 0.6 (0.0-1.0) mg/dL Direct Bilirubin 0.2 (0.0-0.5) mg/dL AST 25 (5-37) U/L ALT 35 (0-40) U/L Alkaline Phosphatase 46 (39-117) U/L Total Creatine Kinase 423 H (38-174) U/L Total Protein 6.7 (6.5-8.0) g/dL Albumin 4.2 (3.5-5.0) g/dL Ethyl Alcohol < 10 mg/dL ECG Data Attestation: I personally reviewed and interpreted this ECG as follows: Prior ECG tracings: available for review Interpretation: Sinus tachycardia, HR 141, normal GA interval, nonspecific ST & T wave abnorm ality Critical Care Time Critical Care Time Critical Care Time: No Discharge Plan Discharge Clinical Impression: Generalized seizure, Rhabdomyolysis, Anxiety Patient Disposition: Home, Self-Care Instructions: Rhabdomyolysis (ED), Seizures After Traumatic Brain Injury (ED) Additional Instructions: The CT scan of your head today showed findings consistent with your previous traumatic brain injury. Your lab work today showed evidence of mild muscle breakdown, your treated with IV fluids with this. Recommend staying hydrated and drinking plenty of fluids today. It is important that you take your previously prescribed seizure medication as directed. Take Tylenol and Motrin as needed for aches and pains today. Follow-up with your doctor. If you develop new or worsening symptoms call 911 or come back to the ER for further evaluation. Prescriptions: No Action No Known Home Meds
[2022-09-20 09:01] VITALS: BP 125/79; PULSE 108; RESP 20; TEMP 36.6; O2SAT 98
[2022-09-20 09:13] LABS: MANUAL DIFF FLAG NO
[2022-09-20 09:14] LABS: Basophils Percent Auto 0.3 % (0-2); Eosinophils Absolute Auto 0.1 X10*3/uL (0.0-0.4); Eosinophils Percent Auto 0.9 % (0-4); Hematocrit 43.4 % (42.0-52.0); Hemoglobin 14.8 g/dl (14.0-18.0); Imm Gran Abs Auto 0.06 X10*3/uL (0.00-0.03); Imm Gran Pct Auto 0.5 % (0.0-0.4); Lymphocytes Absolute Auto 0.8 X10*3/uL (1.2-4.9); Lymphocytes Percent Auto 6.8 % (20-40); Mean Corpuscular HGB Conc 34.1 g/dl (31.0-36.0); Mean Corpuscular Hemoglobin 29.8 pg (27.0-33.0); Mean Corpuscular Volume 87.5 fL (80.0-98.0); Mean Platelet Volume 9.9 fL (9.4-12.4); Monocytes Absolute Auto 0.7 X10*3/uL (0.1-1.2); Monocytes Percent Auto 5.9 % (2-11); Neutrophils Absolute Auto 9.7 x10*3/uL (2.0-8.3); Neutrophils Percent Auto 85.6 % (45-73); Platelet Count 213 X10*3/uL (160-400); Red Blood Count 4.96 X10*6/uL (4.60-5.80); White Blood Count 11.3 X10*3/uL (4.8-10.8)
[2022-09-20] MEDS: Midazolam HCl/PF 2 MG/2 ML VIAL IVPUSH (09:26)
[2022-09-20] MEDS: 0.9 % Sodium Chloride 1,000 ML 999 ML IVCONT ×2 (09:26→12:13)
[2022-09-20 09:30] LABS: Ethanol < 10 mg/dL
[2022-09-20 09:32] LABS: Alanine Aminotransferase 35 U/L (0-40); Albumin Level 4.2 g/dL (3.5-5.0); Alkaline Phosphatase 46 U/L (39-117); Anion Gap 9 (12-20); Aspartate Amino Transferase 25 U/L (5-37); Bilirubin Direct 0.2 mg/dL (0.0-0.5); Bilirubin Total 0.6 mg/dL (0.0-1.0); Blood Urea Nitrogen 20 mg/dL (9-16); Calcium 9.5 mg/dL (8.4-10.2); Carbon Dioxide 25 mmol/L (22-29); Chloride 104 mmol/L (96-108); Creatinine Clr Calc Pharmacy 68.2; Estimated Glomerular Filt Rate > 60; Glucose Random 90 mg/dL (60-115); Magnesium 1.9 mg/dL (1.6-2.6); Potassium 3.8 mmol/L (3.3-5.1); Sodium 134 mmol/L (135-145); Total Protein 6.7 g/dL (6.5-8.0)
[2022-09-20 11:05] VITALS: BP 108/69; PULSE 100; RESP 16; O2SAT 98
[2022-09-20] MEDS: OXcarbazepine 300 MG TABLET PO (11:06)
[2022-09-20] MEDS: Ketorolac Tromethamine 30 MG/ML VIAL IVPUSH (12:13)
[2022-09-20] MEDS: Acetaminophen 325 MG TABLET 975 MG PO (12:13)
== END 2022-09-20 13:46 | disposition home or self-care (01) ==
PROVIDERS: Physician Assistant; Emergency Provider Emergency Medicine; PCP Internal Medicine
DX: G40.409 Other generalized epilepsy and epileptic syndromes, not intractable, without status epilepticus (principal); M62.82 Rhabdomyolysis; Z87.820 Personal history of traumatic brain injury; F41.9 Anxiety disorder, unspecified
CPT/HCPCS: 36415; 70450; 73502; 80048; 80076; 82077; 82550; 83735; 85025; 93005; 96361; 96374; 96375; 99284; 99285; J1885; J2250